=== PATIENT | female | born 1980 | race Caucasian/White ===

== ENCOUNTER 2016-10-18 13:23 | Emergency (ER) | payer MEDICAID ==
[~2016-10-18] VITALS: Ht 170.2 cm; Wt 86.2 kg
--- NOTE | 2016-10-18 13:23 | NUR ---
Patient was BIBA at this time.
[2016-10-18 13:28] VITALS: BP 165/111
--- NOTE | 2016-10-18 14:00 | NUR ---
PATIENT LEFT WITHOUT BEING SEEN BY DR. STEELE. NO FURTHER CARE PROVIDED FOR PATIENT.
== END 2016-10-18 14:00 | disposition left against medical advice (07) ==
LOC: MED 13:23
DX: R46.89 Other symptoms and signs involving appearance and behavior (principal); Z53.21 Procedure and treatment not carried out due to patient leaving prior to being seen by health care provider

== ENCOUNTER 2016-10-18 23:26 | Inpatient (IN) | payer MEDICAID ==
[~2016-10-18] VITALS: Ht 170.2 cm; Wt 87.1 kg
--- NOTE | 2016-10-18 23:35 | NUR ---
BLOOD DRAWN BY HYDRO EXCAVATION OPERATOR.
[2016-10-18 23:36] VITALS: BP 181/118
--- NOTE | 2016-10-18 23:48 | NUR ---
BIBA TO ER BED 3
--- NOTE | 2016-10-18 23:50 | NUR ---
BROUGHT IN BY AMBULANCE FOR ALOC. PT.HAS BEEN PLACED ON 5150 HOLD BY [facility] FOR DANGER TO SELF. PT. IS CONFUSED, REFUSED TO GIVE MUCH INFORMATION. AFEBRIL, NOT IN ANY KIND OF DISTRESS. NO PAIN OR DISCOMFORT NOTED. AWAITING ER-MD EVALUATION.
--- NOTE | 2016-10-19 00:04 | NUR ---
12 LEAD EKG DONE.
--- NOTE | 2016-10-19 00:24 | NUR ---
CAME AT BEDSIDE TO EVALUATE PATIENT.
[2016-10-19] MEDS: NACL 0.9% 1,000 ML IV SCH ×2 (02:03→14:33)
[2016-10-19] MEDS ORDERED: LORazepam 2 MG/ML VIAL IVP PRN (02:05)
[2016-10-19] MEDS ORDERED: HALOPERIDOL IM 5 MG/ML VIAL IM PRN (02:05)
[2016-10-19] MEDS ORDERED: HYDROcodone/APAP 5/325 MG 1 TAB TAB PO PRN (02:05)
[2016-10-19] MEDS ORDERED: ONDANSETRON 4 MG/2 ML VIAL IVP PRN (02:05)
[2016-10-19] MEDS ORDERED: diphenhydrAMINE 50 MG/ML VIAL IM PRN (02:05)
--- NOTE | 2016-10-19 02:05 | NUR ---
UNABLE TO FING A PSYCHIATRIC PLACEMENT FOR PATIENT. ADMITTED TO TELEMETRY IN-PATIENT STATUS FOR 5150 SUICIDAL UNDER THE SERVICE OF . ADMITTING ORDERS GIVEN BY . PT REMAINS STABLE.
--- NOTE | 2016-10-19 03:20 | NUR ---
ASLEEP, NOT IN ANY KIND OF DISTRESS. NO PAIN OR DISCOMFORT NOTED. STILL NO BED ASSIGNED. VS STABLE. WILL CONTINUE TO MONITOR.
--- NOTE | 2016-10-19 05:25 | NUR ---
PT. AWAKE, NOT IN ANY KIND OF DISTRESS. NO PAIN OR DISCOMFORT NOTED. GAUGE 22 IV LINE ESTABLISHED TO THE RIGHT HAND. STILL NO BED ASSIGNED. VS REMAIN STABLE.
--- NOTE | 2016-10-19 06:00 | NUR ---
0600 CALLED FOR PSYCH CONSULT PER PROTOCOL;PER HE WILL COME IN TODAY TO EVALUATE PT
--- NOTE | 2016-10-19 06:30 | NUR ---
PT. WILL BE GOING TO ICU BED 6 INSTEAD BUT NOT UNTIL AFTER 0730. WILL ENDORSE TO AM SHIFT RN.
--- NOTE | 2016-10-19 06:55 | NUR ---
TALK TO DR. LIM, HE WILL D/C NOTHING BY MOUTH ORDER AND CHANGE TO DIET FOR AGE
--- NOTE | 2016-10-19 07:10 | NUR ---
ENDORSED CARE TO LINDA ADAMS
--- NOTE | 2016-10-19 07:44 | NUR ---
PATIENT HAS BEEN SCREENED AND CATEGORIZED LOW NUTRITION RISK. PATIENT WILL BE SEEN WITHIN 7 DAYS OF ADMISSION. 10/25/[address]
--- NOTE | 2016-10-19 07:50 | NUR ---
RECEIVED PT FROM CAROLEE STANFORD.SHE ABLE TO WALK FROM [facility] TO ICU #6 SHE IS AWAKE ALERT FOLLOW COMMAND SHE IS AGITATED AND UNCOOPERATIVE OF AND ON. SHE DID NOT HAVE IV ACCESS AT THE TIME, SKIN INTACT, REFUSED TO HAVE INJECTION MOLDING MACHINE OFFBEARER PUT ON ,REFUSE ANSWER QUESTION . STAY IN BED AT THE TIME,.
--- NOTE | 2016-10-19 07:50 | NUR ---
CALLED ICU.TALKED TO THE RN.THEY SAID THEY WILL CALL BACK BECAUSE ONE OF THEIR PT IS GOING TO DIALYSIS AND THEY NEED TO GIVE THE INFORMATION REGARDING THE PT.
--- NOTE | 2016-10-19 07:59 | NUR ---
PT REMOVED HER IV CATH.EXPLAINED TO PT THAT SHE NEED AN IV ACCESS.BUT STATES" I DON'T NEED THAT ONE,lEAVE ME ALONE"WILL CONTINUE TO MONITOR PT.
--- NOTE | 2016-10-19 08:22 | NUR ---
Patient will be admitted to care of DR LIM. Admited toICU. Will go to rooM 6. Belongings list completed.
--- NOTE | 2016-10-19 08:43 | NUR ---
PT REMOVED IV AND REFUSED REPEATED ATTEMPTS TO INSERT NEW IV. Roque NOTIFIED AND ADVISED RN TO LEAVE IV OUT FOR REMAINDER OF STAY IN ER AND HAVE CLOCK AND WATCH ASSEMBLER ATTEMPT TO RE-ESTABLISH.
--- NOTE | 2016-10-19 09:00 | NUR ---
PT GET UP AND PUT ON HER CLOTH AND ATTEMPT TO WALK OUT FROM ICU . [facility] WAS CALLED. DR LIM WAS CALLED .ORDERED ATIVAN PO BECAUSE SHE REFUSED TO HAVE IV OR IM.
--- NOTE | 2016-10-19 09:03 | NUR ---
ATIVAN PO GAVE IT ORDERED.
--- NOTE | 2016-10-19 09:25 | NUR ---
PT STILL RESISTIVEB TO [facility] REFUSED TO HAVE VITAL SIGN TAKEN DR CAT NOTIFIED.
--- NOTE | 2016-10-19 09:36 | NUR ---
HALDOL IM GIVEN WITH PRESENT OF ORDER DEPARTMENT SUPERVISOR.
[2016-10-19] MEDS: LORazepam 1 MG TAB PO PRN ×2 (09:39→14:06)
[2016-10-19] MEDS ORDERED: HALOPERIDOL 5 MG TAB PO PRN (10:00)
--- NOTE | 2016-10-19 10:00 | NUR ---
PT SLEEPING IN BED.
--- NOTE | 2016-10-19 10:30 | NUR ---
SEEN BY DR. CAT AT BED SIDE. BUT SHE DID ANSWER HIS QUESTION. AND GETTING AGTATED
--- NOTE | 2016-10-19 12:55 | NUR ---
FAXED INITIAL REVIEW TO [facility] [phone] PHONE HUI [phone]
--- NOTE | 2016-10-19 14:20 | NUR ---
DR. LAMBERT CAME TO SEE THE PT SAME TIME WITH DR. BUTLER.
--- NOTE | 2016-10-19 14:30 | NUR ---
SEEN BY DR. BUTLER ORDER SINDY.
--- NOTE | 2016-10-19 15:34 | NUR ---
SS NOTE: SENT PSYCH PLACEMENT INQUIRY TO [facility], RECEIVED FAX CONFIRMATION
[2016-10-19 16:00] VITALS: BP 145/105
--- NOTE | 2016-10-19 17:49 | NUR ---
PT REFUSE HER DINNER
--- NOTE | 2016-10-19 19:15 | NUR ---
PT CONTINUE SLEEPING .REPORT GIVE T0 SAQIB SOLIMAN,
--- NOTE | 2016-10-19 19:15 | NUR ---
RECEIVED REPORT FROM JUAN RN AT BEDSIDE, PT IS SLEEPING IN BED, AGITATED WHEN TRYING TO WAKE HER UP, REFUSED TO BE ASSESSED, REFUSED V/S, REFUSED IV INSERTION. NO S/S OF SOB/DISTRESS, ON RA. NO IV ASSESS, SKIN IS INTACT, AMBULATORY PER REPORT. SAFETY MEASURES MAINTAINED, CALL LIGHT WITHIN REACH, WILL CONTINUE TO MONITOR.
--- NOTE | 2016-10-19 22:45 | NUR ---
PT IS AWAKE, SCHEDULED MEDICATION GIVEN, WENT BACK TO SLEEP, REFUSE DINNER, REFUSED TO BE ASSESSED.
[2016-10-19] MEDS: QUEtiapine FUMARATE 25 MG TAB PO SCH (22:46)
--- NOTE | 2016-10-20 | NUR ---
PT IS ASLEEP IN BED, REFUSED V/S AND BUYER RENTER.
[2016-10-20] MEDS: NACL 0.9% 1,000 ML IV SCH ×2 (03:03→14:35)
--- NOTE | 2016-10-20 04:00 | NUR ---
PT IS ASLEEP IN BED, NO CHANGE OF CONDITION.
--- NOTE | 2016-10-20 07:20 | NUR ---
REPORT GIVEN TO JANNY PUENTE FOR CONTINUE OF CARE.
--- NOTE | 2016-10-20 07:21 | NUR ---
RECEIVED REPORT FROM JANNY CERRATO. NO SIGNS OF ACUTE DISTRESS AT THIS TIME, NO C/O PAIN. PT IS ON ROOM AIR. PT HAS NO IV ACCESS, REFUSED INSERTION. SKIN IS INTACT. SAFETY PRECAUTIONS IN PLACE WITH BED IN LOWEST POSITION AND SIDE RAILS UP. CALL LIGHT WITHIN REACH. WILL CONTINUE TO MONITOR.
[2016-10-20 08:00] VITALS: BP 154/54
[2016-10-20] MEDS: QUEtiapine FUMARATE 25 MG TAB PO SCH (08:00)
--- NOTE | 2016-10-20 08:00 | NUR ---
PT TOLERATED MEDS WELL
--- NOTE | 2016-10-20 09:49 | NUR ---
DR. BE IN TO SEE PT. WILL FOLLOW UP ON ORDERS.
[2016-10-20] MEDS: LORazepam 1 MG TAB PO PRN (11:32)
--- NOTE | 2016-10-20 11:32 | NUR ---
PT BECOMING AGITATED. ADMINISTERED ATIVAN ORDERED PRN. WILL CONTINUE TO MONITOR.
--- NOTE | 2016-10-20 13:18 | NUR ---
CHECKED ON PT. RESTING AT THIS TIME, AROUSABLE. CALL LIGHT WITHIN REACH. WILL CONTINUE TO MONITOR.
--- NOTE | 2016-10-20 13:52 | NUR ---
SS NOTE: SENT PSYCH PLACEMENT INQUIRES TO [facility]
[2016-10-20] MEDS ORDERED: PROBIOTIC SCREEN 1 EA MISC MC PRN (14:35)
--- NOTE | 2016-10-20 14:38 | NUR ---
SS NOTE: PER JOSE LUIS FROM [facility], PT HAS BEEN ACCEPTED BUT NO BEDS AVAILABLE AT THIS TIME PER FLAKO FROM [facility], NO FEMALE BEDS AVAILABLE
--- NOTE | 2016-10-20 16:09 | NUR ---
PT STATED SHE "WANTS TO GO OUTSIDE FOR A WALK." INFORMED PT THAT SHE MUST STAY WITHIN THE UNIT FOR CLOSE OBSERVATION DUE TO 5150 HOLD AND FOR SAFETY PRECAUTIONS. PT BECAME AGITATED. PT WALKED TO THE DOOR AND RAN OUT OF UNIT, EVADED SECURITY. NOTIFIED [place] [employer] AND DR. RADFORD.
--- NOTE | 2016-10-20 16:25 | NUR ---
NOTIFIED BY [place] [employer] THAT PT WAS LOCATED. POLICE OFFER WILL BE HERE FOR CLARIFICATION
--- NOTE | 2016-10-20 17:00 | NUR ---
SPOKE WITH [place] [employer] AND GAVE COPY OF [address] LIM, PT HAS BEEN MEDICALLY CLEARED TO BE TAKEN INTO POLICE CUSTODY FOR PSYCHIATRIC HOLD.
== END 2016-10-20 17:00 | disposition left against medical advice (07) | DRG 52 ==
LOC: MED 23:26 → MMU 10-19 02:01 → MIC 10-19 06:55
PROVIDERS: ADMIT Family Medicine; ATTEND Family Medicine
DX: G93.41 Metabolic encephalopathy (principal); F33.3 Major depressive disorder, recurrent, severe with psychotic symptoms; R45.851 Suicidal ideations; I16.0 Hypertensive urgency; E66.9 Obesity, unspecified; Z60.2 Problems related to living alone; Z88.0 Allergy status to penicillin; Z91.14 Patient's other noncompliance with medication regimen; Z68.30 Body mass index [BMI] 30.0-30.9, adult; Z71.3 Dietary counseling and surveillance

== ENCOUNTER 2016-11-09 10:04 | Observation (INO) | payer MEDICAID ==
[~2016-11-09] VITALS: Ht 170.2 cm; Wt 86.2 kg
--- NOTE | 2016-11-09 10:04 | NUR ---
PT BIBA TO BED 3 AT THIS TIME.
--- NOTE | 2016-11-09 10:12 | NUR ---
36F BIBA C/O ALTERED MENTAL STATUS X TODAY; PER [facility], PT FOUND ON CENTRAL/ARROW WANDERING IN THE STREETS AND DISORIENTED; [facility] STATES PT WOULD "SAY RANDOM THINGS"; [place] [employer] ON SCENE; PT DENIES ANY IDEAS OF SUICIDAL IDEATION, HURTING SELF OR OTHERS AT THIS TIME; PT A&OX3 AT THIS TIME, PERRLA; PT ABLE TO FOLLOW COMMANDS, ANSWERS QUESTIONS APPROPRIATELY, BUT W/ DELAY WHEN ANSWERING QUESTIONS; PT DENIES ANY PAIN AT THIS TIME, BUT STATES HAS NAUSEA/VOMITING; ABDOMEN SOFT, NON-TENDER, ACTIVE BOWEL SOUNDS X 4 QUADRANTS; BL LUNG SOUNDS CLEAR, RR EVEN/UNLABORED, SKIN IS WARM/DRY AT THIS TIME; PT RESTING IN BED W/ HOB ELEVATED AND IN LOWEST POSITION; POSITIONED FOR COMFORT; ER MD MADE AWARE OF STATUS. WILL CONTINUE TO MONITOR.
[2016-11-09 10:20] VITALS: BP 148/103
--- NOTE | 2016-11-09 10:27 | NUR ---
ER MD DR. ENCINAS EVALUATING PT AT BEDSIDE.
[2016-11-09] MEDS ORDERED: NACL 0.9% 1,000 ML IV ONE ×2 (10:35→11:10)
[2016-11-09] MEDS ORDERED: ONDANSETRON 4 MG/2 ML VIAL IVP ONE (10:35)
[2016-11-09 11:12] LABS: BILIRUBIN,URINE NEGATIVE (NEGATIVE); BLOOD, URINE NEGATIVE (NEGATIVE); COLOR,URINE YELLOW (YELLOW); LEUKOCYTE ESTERASE ,URINE NEGATIVE (NEGATIVE); NITRITE, URINE NEGATIVE (NEGATIVE); PH,URINE 6.5 (5.0-9.0); PROTEIN,URINE NEGATIVE (NEGATIVE); UGLUCOSE NEGATIVE (NEGATIVE); UROBILINOGEN,URINE 0.2 EU/dL (0.2 - 1)
[2016-11-09] MEDS ORDERED: NACL 0.9% 1,000 ML IV SCH (11:15)
[2016-11-09] MEDS ORDERED: ONDANSETRON 4 MG/2 ML VIAL IVP PRN (11:15)
[2016-11-09] MEDS ORDERED: ACETAMINOPHEN 325 MG TAB PO PRN (11:15)
[2016-11-09] MEDS ORDERED: HYDROcodone/APAP 7.5/325 MG 1 TAB PO PRN (11:15)
[2016-11-09 11:17] LABS: HEMATOCRIT 44.2 % (36-48); HEMOGLOBIN 14.4 g/dL (12.0-16.0); MEAN CORPUSCULAR HEMOGLOBIN 29 pg (27-31); MEAN CORPUSCULAR HGB CONC 33 g/dL (33-37); MEAN CORPUSCULAR VOLUME 90 fL (80-94); PLATELET COUNT (AUTO) 299 K/uL (140-450); RED BLOOD CELL COUNT(AUTO) 4.93 MIL/uL (4.20-5.40); RED CELL DISTRIBUTION WIDTH 11.9 % (11.6-13.7); WHITE BLOOD COUNT (AUTO) 11.5 K/uL (4.8-10.8)
--- NOTE | 2016-11-09 11:28 | NUR ---
CALLED ERNESTO RN TO GIVE REPORT; ERNESTO TO CALL BACK IN 5 MINUTES.
[2016-11-09 11:35] LABS: ANION GAP 17.2 (8-16); CALCIUM 9.1 mg/dL (8.5-10.1); CARBON DIOXIDE 24.4 mmol/L (21-32); CHLORIDE 101 mmol/L (98-107); CREATININE 0.8 mg/dL (0.6-1.3); GFR ARICAN-AMERICAN 104 mL/min (>90); GFR NON ARICAN-AMERICAN 86 mL/min (>90); GLUCOSE 118 mg/dL (74-106); POTASSIUM 3.6 mmol/L (3.5-5.1); SODIUM SERUM 139 mmol/L (136-145); UREA NITROGEN, BLOOD 8 mg/dL (7-18)
--- NOTE | 2016-11-09 11:36 | NUR ---
REPORT GIVEN TO JANNY OROZCO AT THIS TIME.
[2016-11-09 11:40] LABS: ALANINE AMINOTRANSFERASE 82 U/L (12-78); ALBUMIN 4.2 g/dL (3.4-5.0); ALCOHOL, BLOOD < 3 mg/dL (<3); ALKALINE PHOSPHATASE 72 U/L (46-116); ASPARTATE AMINOTRANSFERASE 46 U/L (15-37); TOTAL BILIRUBIN 0.7 mg/dL (0.0-1.0); TOTAL PROTEIN, SERUM 8.2 g/dL (6.4-8.2)
[2016-11-09 11:42] LABS: ACETAMINOPHEN < 0.5 ug/ml (10-30); SALICYLATE < 2.8 mg/dL (2.8-20.0)
--- NOTE | 2016-11-09 11:45 | NUR ---
Patient will be admitted to care of DR. LIM. Admited to ICU (TELE). Will go to room ICU 2. Belongings list completed. Report to JANNY OROZCO.
[2016-11-09 11:46] LABS: BAND % (MANUAL) 2 % (0-8); LYMPHOCYTES % (MANUAL) 12 % (20-46); MONOCYTES % (MANUAL) 7 % (5-12); NEUTROPHILS % (MANUAL) 79 (43-65); PLATELET ESTIMATE ADEQUATE
[2016-11-09 11:47] LABS: PARTIAL THROMBOPLASTIN TIME 25.3 secs (22-35.6); PROTHROMBIN TIME 9.9 secs (10.8-13.4)
[2016-11-09 11:48] LABS: APPEARANCE,URINE HAZY (CLEAR); RBC,URINE 0-5 (RARE) /HPF (0-5); WBC,URINE 0-5 (RARE) /HPF (0-5)
[2016-11-09 11:49] LABS: AMPHETAMINE, URINE NEG. ng/ml (NEG <=1000); BACTERIA,URINE 1+ /HPF (None Seen); BARBITURATE, URINE NEG. ng/ml (NEG <=200); BENZODIAZEPINE, URINE NEG. ng/mL (NEG <=200); CANNABINOID, URINE NEG. ng/mL (NEG <=50); COCAINE, URINE NEG. ng/mL (NEG <=300); OPIATE, URINE NEG. ng/mL (NEG <=2000); PHENCYCLIDINE SCREEN,URINE NEG. ng/mL (NEG <=25); SQUAMOUS EPITHELIAL CELL,UR 4-10 (MOD) /LPF (0-3 (FEW))
[2016-11-09 12:00] VITALS: BP 158/102
--- NOTE | 2016-11-09 12:00 | NUR ---
RECEIVED PT. FROM ER IN [facility] ADM. TO ICU#2. PT AWAKE AND ALERT ,FOLLOW COMMAND SLOWLY.ABLE TO WALK FROM [facility] TO BED. SHE IS IN ROOM AIE O2 SAT IS 100%. SKIN DRY AND WARM TO TOUCH.NO OPEN AREA NOTE, SKIN COLOR IS NORMAL, ABDOMEN SOFT B/S ACTIVE, DR ATKINSON NOTIFY ABOUT PT ADMITTING.
[2016-11-09 12:23] LABS: MAGNESIUM 2.3 mg/dL (1.8-2.4)
[2016-11-09 12:24] LABS: CHOL/HDL RATIO 4.8 (1-4.5); FREE T4 (FREE THYROXINE) 1.24 ng/dL (0.76-1.46); PHOSPHORUS 2.2 mg/dL (2.5-4.9); THYROID STIMULATING HORMONE 1.76 uIU/mL (0.34-3.76)
[2016-11-09] MEDS ORDERED: LORazepam 2 MG/ML VIAL IVP PRN (13:00)
[2016-11-09] MEDS ORDERED: HALOPERIDOL 5 MG TAB PO PRN (13:00)
--- NOTE | 2016-11-09 14:19 | NUR ---
PT. PULLED RT WRIST IV OUT. PULLED ECG LEADS OFF. GOT OUT OF BED. GAIT IS STEADY. STATES SHE WANTS TO GO HOME. EXPLAINED TO PT IMPORTANCE OF STAYING IN THE HOSPITAL. INSISTS THAT SHE IS FEELING BETTER NOW. ASSISTED BACK TO BED.
--- NOTE | 2016-11-09 14:30 | NUR ---
GOT OUT OF BED. WANTS TO LEAVE HOSPITAL. STATES WE CAN NOT KEEP HER HERE AGAINST HER WILL. SECURITY AT BEDSIDE. TALKED TO PT. DR. ATKINSON NOTIFIED.
--- NOTE | 2016-11-09 14:40 | NUR ---
PT IS AWAKE ALERT ORIENTED ABLE TO REMEMBER HER ADDRESS AND PHONE NUMBER. SHE BECAME AGGRESSIVE REFUSE TO STAY IN BED .TRY TO WALK OUT .RODOLFO DYER PRESENT TALK TO PT. REGARDING CONSEQUENT OF LEAVING HOSPITAL AGAINST MEDICAL ADVISE. SHE REMAIN AWAKE ALERT POOR HISTORIAN ,GETTING OUT OF BED WALKING OUT TO GO HOME. AND SIGN LEAVING THE HOSPITAL AGAINST MEDICAL ADVISE. DR REYNOLDS NOTED
--- NOTE | 2016-11-09 14:45 | NUR ---
PT.LEAVE ICU WITH SECURITY CHANEL.
[2016-11-09] MEDS ORDERED: DOCUSATE SODIUM 100 MG GELCAP PO SCH (21:00)
[2016-11-10] MEDS ORDERED: PANTOPRAZOLE 40 MG INJ VIAL IVP SCH (09:00)
== END 2016-11-09 14:45 | disposition left against medical advice (07) ==
LOC: MED 10:04 → MIC 11:21
PROVIDERS: ADMIT Family Medicine; ATTEND Family Medicine
DX: R41.82 Altered mental status, unspecified (principal); R74.0 Nonspecific elevation of levels of transaminase and lactic acid dehydrogenase [LDH]; D72.829 Elevated white blood cell count, unspecified; E78.2 Mixed hyperlipidemia; E83.39 Other disorders of phosphorus metabolism
CPT/HCPCS: 36415; 70450; 71010; 80053; 80061; 80305; 81001; 82140; 82150; 82948; 83036; 83690; 83735; 83880; 84100; 84439; 84443; 84484; 85025; 85610; 85730; 87081; 87086; 93005; 96374; 96375; 96376; 99285; G0378; G0480; G0482; J2060; J2405; J7030; Q0092; J1630

== ENCOUNTER 2016-11-14 11:13 | Inpatient (IN) | payer MEDICAID ==
[~2016-11-14] VITALS: Ht 167.6 cm; Wt 84.8 kg
--- NOTE | 2016-11-14 11:26 | NUR ---
PT BIBA TO BED 3 AT THIS TIME.
[2016-11-14 11:28] VITALS: BP 172/120
--- NOTE | 2016-11-14 11:30 | NUR ---
PATIENT BIBA ON HOLD FOR SUICIDAL IDEATION. PT TOOK UNKNOWN AMOUNT AND UNKNOWN NAME OF PILLS; DENIES N/V/D; SKIN IS PINK/WARM/DRY; AAOX4 WITH EVEN AND STEADY GAIT; LUNGS CLEAR BL; HR EVEN AND REGULAR; PT DENIES ANY FEVER, CP, SOB, OR COUGH AT THIS TIME; PATIENT STATES PAIN OF 0/10 AT THIS TIME; VSS; PATIENT POSITIONED FOR COMFORT; HOB ELEVATED; BEDRAILS UP X2; BED DOWN. ER MD MADE AWARE OF PT STATUS.
[2016-11-14 11:38] LABS: BASOPHILS # (AUTO) 0.1 K/uL (0.00-0.22); EOSINOPHILS # (AUTO) 0.2 K/uL (0-0.4); EOSINOPHILS % (AUTO) 2.3 % (0.0-4.0); HEMATOCRIT 42.5 % (36-48); LYMPHOCYTES # (AUTO) 1.5 K/uL (2.5-16.5); LYMPHOCYTES % (AUTO) 19.1 % (20.5-51.1); MEAN CORPUSCULAR HEMOGLOBIN 29 pg (27-31); MEAN CORPUSCULAR HGB CONC 33 g/dL (33-37); MEAN CORPUSCULAR VOLUME 89 fL (80-94); MONOCYTES % (AUTO) 12.2 % (1.7-9.3); NEUTROPHILS # (AUTO) 5.3 K/uL (1.8-7.7); NEUTROPHILS % (AUTO) 65.4 % (42.2-75.2); PLATELET COUNT (AUTO) 223 K/uL (140-450); RED BLOOD CELL COUNT(AUTO) 4.78 MIL/uL (4.20-5.40); WHITE BLOOD COUNT (AUTO) 8.1 K/uL (4.8-10.8)
[2016-11-14 11:45] LABS: CALCIUM 8.9 mg/dL (8.5-10.1); CARBON DIOXIDE 24.8 mmol/L (21-32); CHLORIDE 105 mmol/L (98-107); CREATININE 0.9 mg/dL (0.6-1.3); GFR ARICAN-AMERICAN 91 mL/min (>90); GFR NON ARICAN-AMERICAN 75 mL/min (>90); GLUCOSE 122 mg/dL (74-106); POTASSIUM 3.8 mmol/L (3.5-5.1); SODIUM SERUM 139 mmol/L (136-145); UREA NITROGEN, BLOOD 11 mg/dL (7-18)
--- NOTE | 2016-11-14 11:47 | NUR ---
SPOKE WITH QUIQUE AT POISON CONTROL - MONITOR, CHECK LABS. [facility]
--- NOTE | 2016-11-14 11:50 | NUR ---
DR ABRAMS ASSESSING THE PT AT BEDSIDE
[2016-11-14 11:51] LABS: ALANINE AMINOTRANSFERASE 50 U/L (12-78); ALBUMIN 3.9 g/dL (3.4-5.0); ALKALINE PHOSPHATASE 69 U/L (46-116); ASPARTATE AMINOTRANSFERASE 21 U/L (15-37); TOTAL BILIRUBIN 0.5 mg/dL (0.0-1.0); TOTAL PROTEIN, SERUM 7.5 g/dL (6.4-8.2)
[2016-11-14 11:52] LABS: SALICYLATE < 2.8 mg/dL (2.8-20.0)
[2016-11-14 11:53] LABS: ACETAMINOPHEN < 0.5 ug/ml (10-30); ALCOHOL, BLOOD < 3 mg/dL (<3)
[2016-11-14 12:12] LABS: APPEARANCE,URINE CLEAR (CLEAR); BILIRUBIN,URINE NEGATIVE (NEGATIVE); BLOOD, URINE NEGATIVE (NEGATIVE); LEUKOCYTE ESTERASE ,URINE NEGATIVE (NEGATIVE); NITRITE, URINE NEGATIVE (NEGATIVE); PH,URINE 6.5 (5.0-9.0); PROTEIN,URINE NEGATIVE (NEGATIVE); UGLUCOSE NEGATIVE (NEGATIVE); UROBILINOGEN,URINE 0.2 EU/dL (0.2 - 1)
[2016-11-14 12:18] LABS: AMPHETAMINE, URINE NEG. ng/ml (NEG <=1000); BARBITURATE, URINE NEG. ng/ml (NEG <=200); BENZODIAZEPINE, URINE NEG. ng/mL (NEG <=200); CANNABINOID, URINE NEG. ng/mL (NEG <=50); COCAINE, URINE NEG. ng/mL (NEG <=300); OPIATE, URINE NEG. ng/mL (NEG <=2000); PHENCYCLIDINE SCREEN,URINE NEG. ng/mL (NEG <=25)
--- NOTE | 2016-11-14 12:25 | NUR ---
PT TOOK OFF THE UNIT, RUN OFF THE PARKING LOT TO THE STREET, SECURITY CALLED, MANE EASON NOTIFIED, AWARE
[2016-11-14 12:58] LABS: COLOR,URINE YELLOW (YELLOW)
--- NOTE | 2016-11-14 13:15 | NUR ---
PT FOUND BY MANE EASON AND BROUGHT BACK BY AMBULANCE REPORT RECIEVE FROM [facility], PLACE ON MONITOR, WITH HUMBERTO VILLAGOMEZ AT BEDSIDE
--- NOTE | 2016-11-14 13:30 | NUR ---
PT AMBULATES TO THE RESTROOM WITH HUMBERTO VILLAGOMEZ'S ASSISTANCE
--- NOTE | 2016-11-14 13:33 | NUR ---
PT BACK ON BED PLACED ON MONITOR BY HUMBERTO VILLAGOMEZ AT BEDSIDE, VSS, WILL CONTINUE TO MONITOR
--- NOTE | 2016-11-14 13:44 | NUR ---
PT UNCOOPERATIVE, TOOK OFF GOWN, TECH SNODRA AND TECH DAHLIA AT BEDSIDE
--- NOTE | 2016-11-14 15:00 | NUR ---
PT TOOK OFF RUNNING OFF THE UNIT TO THE PARKING LOT, JANNY ESPARZA, AND SECURITY ASSISTED THE PT BACK VIA WHEEL CHAIR TO BED 3
--- NOTE | 2016-11-14 16:11 | NUR ---
PT RESTING COMFORTABLY ON BED AT THIS TIME, SIDE RAILS UP X 2, NO AGITATION NOTED, ON MONITOR, HUMBERTO VILLAGOMEZ AT BEDSIDE, PER HUMBERTO HERNANDEZ PT ACCEPTED AT [facility], RN NOT AVAILABLE UNTIL 8PM, WILL CONTINUE TO MONITOR
--- NOTE | 2016-11-14 16:35 | NUR ---
PT WILL BE GOING TO 106B HOLDING AREA WITH SITTER PER JANNY KINCAID
--- NOTE | 2016-11-14 16:40 | NUR ---
PATIENT ACCEPTED AT [facility]. [place],RM 6-B LOCKED [place] UNIT. BED WILL BE READY AT 2029. NURSE WILL CALL REPORT AT 1999. PATIENT IN HOLDING AREA 106-B WITH SITTER UNTIL TRANSFER. WILL ARRANGE TRANSPORT
--- NOTE | 2016-11-14 19:30 | NUR ---
REPORT GIVEN TO JANNY LOU AT [facility], ADMITTING DR SIDHU, ROOM NO 6B LOCKED FLAT TOP UNIT AT [facility]
--- NOTE | 2016-11-14 20:29 | NUR ---
Patient to be transferred to [facility]. Is being transferred due to CONT OF CARE]. Receiving facility has accepting physician and available space. ER physician has signed transfer form. Patient or responsible republican has agreed to transfer and signed form. Patient belongings inventoried and will be sent with patient. Copy of nursing notes, lab reports, EKG, Physicians Orders and X-rays to be sent with patient. Report called to [facility] at receiving facility. [facility] ambulance service has been called for transfer. ETA is .
--- NOTE | 2016-11-14 20:50 | NUR ---
PT UNABLE TO BE TRANSFED TO [facility] S/P HIGH BP 185/93, 104,SAT 97%, CALLED REPORT TO PATEL. PT WILL BE ADMITED TO [facility] ICU 3
--- NOTE | 2016-11-14 21:14 | NUR ---
PT ASYMTOMTIC VSS, PRE DR CA PMD TO ORDER MEDS. ICU NOTIFTED
--- NOTE | 2016-11-14 21:22 | NUR ---
Patient will be admitted to care of [facility]. Admited to . Will go to room. Belongings list completed. Report to .
[2016-11-14 21:40] VITALS: BP 157/93
--- NOTE | 2016-11-14 21:40 | NUR ---
PATIENT ARRIVED FROM ER VIA [facility] WITH CHARGE NURSE KWAME SOLIMAN AND EMT ACCOMPANYING PATIENT. PATIENT IS ALERT, AWAKE, AND ABLE TO SELF AMBULATE FROM [facility] ONTO ICU BED 3. GAIT STEADY WITH NO SIGNS OF SOB OR RESPIRATORY DISTRESS NOTED. PATIENT'S DIAGNOSIS IS 5150. THERE IS NO IV ACCESS. WILL INSERT IV CANNULA. CHARGE NURSE DONN SOLIMAN AT BEDSIDE. ORIENTED PATIENT TO SURROUNDINGS. EXPLAINED TO PATIENT PLAN OF CARE IS CLOSE OBSERVATION AND MEDICATION ADMINISTRATION. PATIENT'S EFFECT IS FLAT, BUT VERBALIZED UNDERSTANDING. ASKED PATIENT IF SHE HAS ANY PLANS OF HARMING HERSELF OR OTHERS. PATIENT DENIES WANTING TO HURT HERSELF AND OTHERS. HOB AT 30 DEGREES WITH BED IN LOW POSITION. WILL CONTINUE TO MONITOR PATIENT.
--- NOTE | 2016-11-14 21:45 | NUR ---
[facility] SWAB COLLECTED.
--- NOTE | 2016-11-14 22:00 | NUR ---
CHARGE NURSE DONN RN #20 INSERTED INTO LEFT HAND. IV IS INTACT AND PATENT. CONTINUE TO MONITOR.
--- NOTE | 2016-11-14 22:18 | NUR ---
PATIENT REQUESTED BEDPAN TO VOID. ASSISTED PATIENT ONTO BEDPAN. CONTINUE TO MONITOR PATIENT.
--- NOTE | 2016-11-14 22:20 | NUR ---
PATIENT IS RESTLESS AND AGITATED WANTS TO GO DOWN FROM THE BED SINCE PATIENT CAME IN OR ADMITTED FROM ER AND HER BP TOO IS HIGH 150-160 SYSTOLIC; PAGED DR. FRAIRE TO REFER THE PATIENT; RETURNED MY PAGED 10 MINS AFTER WITH NEW ORDERS, CARRIED OUT.
--- NOTE | 2016-11-14 22:29 | NUR ---
PATIENT SITTING UP IN BED. PATIENT REMOVED EKG LEADS, PULSE OX, AND BLOOD PRESSURE CUFF. ASSISTED PATIENT ONTO BEDSIDE COMMODE.
[2016-11-14] MEDS ORDERED: ACETAMINOPHEN 325 MG TAB PO PRN (22:30)
[2016-11-14] MEDS ORDERED: DOCUSATE SODIUM 100 MG GELCAP PO PRN (22:30)
[2016-11-14] MEDS ORDERED: MORPHINE SULFATE 2 MG/ML SYR IVP PRN (22:30)
[2016-11-14] MEDS ORDERED: ONDANSETRON 4 MG/2 ML VIAL IVP PRN (22:30)
--- NOTE | 2016-11-14 22:30 | NUR ---
URINE OUTPUT OF 300ML OF CLEAR PALE YELLOW URINE.
--- NOTE | 2016-11-14 22:32 | NUR ---
PATIENT REPORTING HER RIGHT ARM HURTS. PATIENT REMOVED IV CANNULA.
[2016-11-14] MEDS ORDERED: NACL 0.9% 1,000 ML IV SCH (22:35)
[2016-11-14] MEDS ORDERED: LISINOPRIL 10 MG TAB PO SCH (22:35)
[2016-11-14] MEDS ORDERED: hydrALAZINE 20 MG/ML VIAL IVP ONE (22:35)
--- NOTE | 2016-11-14 22:45 | NUR ---
PATIENT REFUSING IV INSERTION AT THIS TIME.
[2016-11-14] MEDS: LORazepam 2 MG/ML VIAL IM/IVP PRN (23:13)
--- NOTE | 2016-11-14 23:15 | NUR ---
CHARGE NURSE DONN SOLIMAN INSERTED #22 INTO RIGHT HAND. SITE IS DRY, INTACT, AND PATENT. CONTINUE TO MONITOR. Addendum: 11/15/16 at 0339 by Anthony Yuen RN LEFT HAND, NOT RIGHT HAND.
--- NOTE | 2016-11-14 23:18 | NUR ---
BRIQUETTE MOLDER AT BEDSIDE FOR LAB DRAWS. PATIENT ATTEMPTING TO REMOVE IV CATHETER. DIRECTOR TRANSLATION TIMOTHY SOLIMAN ON UNIT. SOFT WRIST RESTRAINTS APPLIED ON BILATERAL WRISTS R/T PATIENT ATTEMPTING TO REMOVE IV CATHETER. DIRECTOR TRANSLATION IS AWARE. CONTINUE TO MONITOR.
[2016-11-14 23:28] LABS: MAGNESIUM 2.1 mg/dL (1.8-2.4); PHOSPHORUS 1.4 mg/dL (2.5-4.9); THYROID STIMULATING HORMONE 1.28 uIU/mL (0.34-3.76)
--- NOTE | 2016-11-14 23:50 | NUR ---
PAGED DR. LIM. WILL WAIT FOR CALL BACK.
[2016-11-14 23:52] LABS: INR 1.1 (0.8-1.2); PARTIAL THROMBOPLASTIN TIME 24.7 secs (22-35.6); PROTHROMBIN TIME 10.1 secs (10.8-13.4)
--- NOTE | 2016-11-14 23:52 | NUR ---
SPOKE TO DR. FRAIRE, WHO IS EGG TRAYER FOR DR. LIM. NOTIFIED DR. FRAIRE THAT PATIENT PULLED OUT IV, REPEATEDLY ATTEMPTING TO PULL OUT NEW IV INSERTION, AND THAT CHARGE NURSE DONN SOLIMAN PREVIOUSLY REPORTED THIS TO HIM. DR. FRAIRE WILL PUT IN ORDERS FOR BILATERAL SOFT WRIST RESTRAINTS.
[2016-11-15] VITALS: BP 112/71
--- NOTE | 2016-11-15 01:45 | NUR ---
PAGED DR. FRAIRE REGARDING CRITICAL LAB LACTIC ACID 2.7. WILL WAIT FOR CALL BACK.
--- NOTE | 2016-11-15 01:47 | NUR ---
SPOKE TO DR. FRAIRE REGARDING CRITICAL LAB VALUE OF LACTIC ACID 2.7. DR. FRAIRE STATED HE WILL PUT IN NEW ORDERS FOR REPEAT LACTIC ACID. CHARGE NURSE DONN SOLIMAN MADE AWARE. CONTINUE TO MONITOR PATIENT.
--- NOTE | 2016-11-15 01:52 | NUR ---
PATIENT IS RESTING COMFORTABLY IN BED. BREATHING IS EVEN AND UNLABORED. CONTINUE TO MONITOR.
--- NOTE | 2016-11-15 02:07 | NUR ---
SSIS ETL DEVELOPER KARMEN AT BEDSIDE FOR SCHEDULED LAB DRAW.
--- NOTE | 2016-11-15 03:54 | NUR ---
PATIENT REQUESTED TO USE BSC TO VOID. BILATERAL SOFT WRIST RESTRAINTS REMOVED. OUTPUT OF 225ML OF CLEAR YELLOW URINE NOTED. ASSISTED PATIENT BACK INTO BED. INSTRUCTED PATIENT THAT BILATERAL SOFT WRIST RESTRAINTS ARE OFF FOR TIME BEING AND REINFORCED TO PATIENT NOT TO REMOVE IV CATHETER. PATIENT STATED "OK". WILL CONTINUE TO MONITOR.
--- NOTE | 2016-11-15 03:59 | NUR ---
PATIENT ATTEMPTING TO PULL OUT IV LINE. BILATERAL SOFT WRIST RESTRAINTS REAPPLIED. WILL CONTINUE TO MONITOR PATIENT.
[2016-11-15 04:00] VITALS: BP 130/87
--- NOTE | 2016-11-15 04:44 | NUR ---
NAVAL DESIGNER KARMEN AT BEDSIDE FOR SCHEDULED LAB DRAW.
[2016-11-15 04:58] LABS: BASOPHILS # (AUTO) 0.1 K/uL (0.00-0.22); BASOPHILS % (AUTO) 1.4 % (0.0-2.0); EOSINOPHILS # (AUTO) 0.1 K/uL (0-0.4); EOSINOPHILS % (AUTO) 1.5 % (0.0-4.0); HEMATOCRIT 40.3 % (36-48); HEMOGLOBIN 13.1 g/dL (12.0-16.0); LYMPHOCYTES # (AUTO) 1.8 K/uL (2.5-16.5); MEAN CORPUSCULAR HEMOGLOBIN 30 pg (27-31); MEAN CORPUSCULAR HGB CONC 33 g/dL (33-37); MEAN CORPUSCULAR VOLUME 90 fL (80-94); MONOCYTES # (AUTO) 0.7 K/uL (0.8-1.0); MONOCYTES % (AUTO) 9.8 % (1.7-9.3); NEUTROPHILS # (AUTO) 4.9 K/uL (1.8-7.7); NEUTROPHILS % (AUTO) 64.3 % (42.2-75.2); PLATELET COUNT (AUTO) 198 K/uL (140-450); RED BLOOD CELL COUNT(AUTO) 4.46 MIL/uL (4.20-5.40); WHITE BLOOD COUNT (AUTO) 7.6 K/uL (4.8-10.8)
--- NOTE | 2016-11-15 05:13 | NUR ---
ASSISTED PATIENT ONTO BEDSIDE COMMODE TO VOID. OUTPUT OF 180ML OF CLEAR YELLOW URINE NOTED. ASSISTED PATIENT BACK INTO BED. BILATERAL SOFT WRIST RESTRAINTS REAPPLIED. CONTINUE TO MONITOR.
[2016-11-15 05:30] LABS: ANION GAP 10.8 (8-16); CALCIUM 8.7 mg/dL (8.5-10.1); CARBON DIOXIDE 27.8 mmol/L (21-32); CREATININE 0.9 mg/dL (0.6-1.3); POTASSIUM 3.6 mmol/L (3.5-5.1)
--- NOTE | 2016-11-15 06:00 | NUR ---
PATIENT REQUESTED TO USE BSC TO VOID. CHARGE NURSE DONN RN AT BEDSIDE TO ASSIST PATIENT ONTO BSC. CONTINUE TO MONITOR.
--- NOTE | 2016-11-15 06:03 | NUR ---
BILATERAL SOFT WRIST RESTRAINTS REMOVED AT THIS TIME. REINFORCED TO PATIENT NOT TO REMOVE IV LINE. PATIENT VERBALIZED UNDERSTANDING. CONTINUE TO MONITOR.
--- NOTE | 2016-11-15 06:12 | NUR ---
PATIENT RESTING IN BED. AFFECT IS FLAT. NO SIGNS OF DISTRESS OR DISCOMFORT NOTED AT THIS TIME. CONTINUE TO MONITOR.
--- NOTE | 2016-11-15 07:09 | NUR ---
PATIENT IN STABLE CONDITION. ENDORSED CONTINUITY OF CARE TO DAVID SOLIMAN.
--- NOTE | 2016-11-15 07:30 | NUR ---
RECEIVED PT FROM SECTION LEADER AND MACHINE SETTER RN ZENY. PATIENT IS ALERT, AWAKE, AND ABLE TO AMBULATE. PT ON ROOM AIR, NO SIGNS OF RESPIRATORY DISTRESS NOTED. PATIENT'S DIAGNOSIS IS 5150. IV TO LEFT HAND # 22 RUNNING FLUID AT 20 ML/HR, SITE INTACT AND PATENT. ORIENTED PATIENT TO SURROUNDINGS. EXPLAINED TO PATIENT PLAN OF CARE IS CLOSE OBSERVATION , PT VERBALIZED UNDERSTANDING. PT DENIES ANY PLANS OF HARMING HERSELF BUT SHE STATED SHE WANTS TO GO HOME . HOB AT 30 DEGREES WITH BED IN LOW POSITION. WILL CONTINUE TO MONITOR PATIENT.
[2016-11-15] MEDS: LORazepam 2 MG/ML VIAL IM/IVP PRN ×2 (07:48→11:46)
[2016-11-15 08:00] VITALS: BP 150/96
[2016-11-15] MEDS ORDERED: hydrALAZINE 20 MG/ML VIAL IVP SCH (08:21)
[2016-11-15] MEDS ORDERED: LISINOPRIL 10 MG TAB PO SCH (09:00)
[2016-11-15 09:11] VITALS: BP 120/68
--- NOTE | 2016-11-15 09:30 | NUR ---
PT REFUSED TO RECHECK BP. EXPLAINED TO PT WE NEED TO REASSESS BP. PT STATED " IT BOTHERING ME", THEN PT TOOK THE BP CUFF OFF.
--- NOTE | 2016-11-15 09:43 | NUR ---
PATIENT HAS BEEN SCREENED AND CATEGORIZED LOW NUTRITION RISK. PATIENT WILL BE SEEN WITHIN 7 DAYS OF ADMISSION. 11/21/[address]
--- NOTE | 2016-11-15 10:41 | NUR ---
CM NOTE PER COMBINE MECHANIC TAHMINA, REVIEWS SHOULD BE SENT TO BOTH [facility] AND [facility]. INITIAL REVIEW SENT TO [facility] FAX# [phone] PH#[phone] AND TO [facility] FAX# [phone] PH# [phone] (c) [phone]
[2016-11-15 12:00] VITALS: BP 120/70
[2016-11-15] MEDS ORDERED: SODIUM PHOS / POTASSIUM PHOS 1 PKT PDR PO SCH (12:00)
--- NOTE | 2016-11-15 12:00 | NUR ---
MANUAL BP CHECKED 120/70. PT REFUSED BEDSIDE BP CHECK.
--- NOTE | 2016-11-15 15:14 | NUR ---
BP SLEEPING AT THIS TIME. NO S/S OF RESPIRATORY DISTRESS NOTED. WILL CONTINUE TO MONITOR. Addendum: 11/15/16 at 1646 by Pascual Ruiz RN TYPO. PATIENT INSTEAD OF BP.
--- NOTE | 2016-11-15 15:58 | NUR ---
DR. LOVE PSYCHO IN TO ASSESS PT.
[2016-11-15 16:10] VITALS: BP 140/80
--- NOTE | 2016-11-15 16:10 | NUR ---
PT PULLED OUT IV AFTER EVALUATED BY , GOT OUT OF BED AND WALKED OUT OF UNIT, CALLED SECURITY TO ASSIST PT BACK TO BED. MANUAL BP CHECKED 140/80 , PT REFUSED BEDSIDE BP CHECK.
--- NOTE | 2016-11-15 16:15 | NUR ---
PER DR. LOVE, PT MAY BE D/C 'D HOME IF PT IS MEDICALLY CLEARED. NOTIFIED DR. ROMERO, PER DR. ROMERO HE WILL COME OVER TO ASSESS PT.
--- NOTE | 2016-11-15 17:00 | NUR ---
PT REFUSED BEDSIDE MONITOR. RISKS AND BENEFITS EXPLAINED TO PT. PT STILL REFUSED MONITORING.
--- NOTE | 2016-11-15 17:30 | NUR ---
AT BEDSIDE TO ASSESS PT.
--- NOTE | 2016-11-15 17:50 | NUR ---
PT TOLD SHE WANTS TO GO HOME. DR. ROMERO EXPLAINED TO PT THE RISKS OF LEAVING, PT STILL WANTS TO GO HOME. PT SIGNED AMA FORM. PT CALLED DR. RALPH HUANG ( FATHER) TO PICK HER UP. PT STATED HE DOES NOT WANT TO PICK ME UP, I WILL WALK HOME BY MYSELF. PT WALKED OUT OF UNIT AFTER SIGNING AMA FORM.
== END 2016-11-15 17:50 | disposition left against medical advice (07) | DRG 770 ==
LOC: MED 11:13 → UNDOADMOB 21:22 → MIC 21:22 → INTOOBSV 21:22 → OBSVTOIN 11-15 07:17 → MIC 11-15 07:17
PROVIDERS: ADMIT Family Medicine; ATTEND Family Medicine
DX: F13.129 Sedative, hypnotic or anxiolytic abuse with intoxication, unspecified (principal); R45.851 Suicidal ideations; F43.23 Adjustment disorder with mixed anxiety and depressed mood; E83.39 Other disorders of phosphorus metabolism; E66.9 Obesity, unspecified; E78.2 Mixed hyperlipidemia; Z53.21 Procedure and treatment not carried out due to patient leaving prior to being seen by health care provider; T42.75XA Adverse effect of unspecified antiepileptic and sedative-hypnotic drugs, initial encounter; Z68.30 Body mass index [BMI] 30.0-30.9, adult; Z88.0 Allergy status to penicillin; I16.0 Hypertensive urgency
CPT/HCPCS: 36415; 80048; 80053; 80305; 81003; 82040; 82150; 83036; 83605; 83690; 83735; 83880; 84100; 84443; 84702; 85025; 85610; 85730; 87081; 93005; 99285; G0378; G0480; G0482; J0360; J2060; J7030

== ENCOUNTER 2017-01-04 10:33 | Inpatient (IN) | payer MEDICAID ==
[~2017-01-04] VITALS: Ht 172.7 cm; Wt 78.0 kg
--- NOTE | 2017-01-04 10:35 | NUR ---
PT BIBA TO BED 3.
[2017-01-04 10:37] VITALS: BP 176/108
--- NOTE | 2017-01-04 10:40 | NUR ---
PT BIBA ON 5150 HOLD, ALTERED MENTAL STATUS. HX SCHIZOPHRENIA. DENIES N/V/D; SKIN IS PINK/WARM/DRY; AAOX4 WITH EVEN AND STEADY GAIT; LUNGS CLEAR BL; HR EVEN AND REGULAR; PT DENIES ANY FEVER, CP, SOB, OR COUGH AT THIS TIME; PATIENT STATES PAIN OF 0/10 AT THIS TIME; VSS; PATIENT POSITIONED FOR COMFORT; HOB ELEVATED; BEDRAILS UP X2; BED DOWN. ER MD MADE AWARE OF PT STATUS.
--- NOTE | 2017-01-04 10:50 | NUR ---
PT AMBULATES TO THE RESTROOM FOR URINE SAMPLE AND PLACE BACK ON BED ON CONTINOUS MONITOR, PT COOPERATIVE, NO AGRESSIVE BEHAVIOR NOTED AT THIS TIME, WILL CONTINUE TO MONITOR
[2017-01-04 11:03] LABS: BASOPHILS # (AUTO) 0.1 K/uL (0.00-0.22); BASOPHILS % (AUTO) 1.5 % (0.0-2.0); EOSINOPHILS # (AUTO) 0.2 K/uL (0-0.4); EOSINOPHILS % (AUTO) 1.6 % (0.0-4.0); HEMOGLOBIN 12.8 g/dL (12.0-16.0); LYMPHOCYTES # (AUTO) 1.5 K/uL (2.5-16.5); LYMPHOCYTES % (AUTO) 14.9 % (20.5-51.1); MEAN CORPUSCULAR HEMOGLOBIN 29 pg (27-31); MEAN CORPUSCULAR HGB CONC 33 g/dL (33-37); MEAN CORPUSCULAR VOLUME 89 fL (80-94); MONOCYTES # (AUTO) 0.8 K/uL (0.8-1.0); MONOCYTES % (AUTO) 8.7 % (1.7-9.3); NEUTROPHILS # (AUTO) 7.2 K/uL (1.8-7.7); NEUTROPHILS % (AUTO) 73.3 % (42.2-75.2); PLATELET COUNT (AUTO) 200 K/uL (140-450); RED BLOOD CELL COUNT(AUTO) 4.37 MIL/uL (4.20-5.40); RED CELL DISTRIBUTION WIDTH 11.9 % (11.6-13.7); WHITE BLOOD COUNT (AUTO) 9.8 K/uL (4.8-10.8)
[2017-01-04 11:05] LABS: BILIRUBIN,URINE NEGATIVE (NEGATIVE); BLOOD, URINE NEGATIVE (NEGATIVE); COLOR,URINE YELLOW (YELLOW); LEUKOCYTE ESTERASE ,URINE NEGATIVE (NEGATIVE); NITRITE, URINE NEGATIVE (NEGATIVE); PROTEIN,URINE NEGATIVE (NEGATIVE); UGLUCOSE NEGATIVE (NEGATIVE); UROBILINOGEN,URINE 0.2 EU/dL (0.2 - 1)
[2017-01-04 11:12] LABS: ANION GAP 13.1 (8-16); CALCIUM 8.5 mg/dL (8.5-10.1); CARBON DIOXIDE 27.6 mmol/L (21-32); CHLORIDE 102 mmol/L (98-107); CREATININE 0.8 mg/dL (0.6-1.3); GFR ARICAN-AMERICAN 104 mL/min (>90); GFR NON ARICAN-AMERICAN 86 mL/min (>90); GLUCOSE 103 mg/dL (74-106); POTASSIUM 3.7 mmol/L (3.5-5.1); SODIUM SERUM 139 mmol/L (136-145); UREA NITROGEN, BLOOD 13 mg/dL (7-18)
[2017-01-04 11:12] LABS: AMPHETAMINE, URINE NEG. ng/ml (NEG <=1000); BARBITURATE, URINE NEG. ng/ml (NEG <=200); BENZODIAZEPINE, URINE NEG. ng/mL (NEG <=200); CANNABINOID, URINE NEG. ng/mL (NEG <=50); COCAINE, URINE NEG. ng/mL (NEG <=300); OPIATE, URINE NEG. ng/mL (NEG <=2000); PHENCYCLIDINE SCREEN,URINE NEG. ng/mL (NEG <=25)
[2017-01-04 11:15] LABS: APPEARANCE,URINE HAZY (CLEAR)
[2017-01-04 11:16] LABS: BACTERIA,URINE None Seen /HPF (None Seen); RBC,URINE NONE SEEN /HPF (0-5); SQUAMOUS EPITHELIAL CELL,UR 0-3 (FEW) /LPF (0-3 (FEW)); WBC,URINE 0-5 (RARE) /HPF (0-5)
[2017-01-04 11:19] LABS: ALANINE AMINOTRANSFERASE 64 U/L (14-59); ALBUMIN 3.9 g/dL (3.4-5.0); ALCOHOL, BLOOD < 3 mg/dL (<3); ALKALINE PHOSPHATASE 60 U/L (46-116); ASPARTATE AMINOTRANSFERASE 23 U/L (15-37); CREATINE KINASE, TOTAL 136 U/L (26-192); SALICYLATE < 2.8 mg/dL (2.8-20.0); TOTAL BILIRUBIN 0.5 mg/dL (0.0-1.0); TOTAL PROTEIN, SERUM 7.4 g/dL (6.4-8.2)
[2017-01-04 11:20] LABS: ACETAMINOPHEN < 0.5 ug/ml (10-30)
--- NOTE | 2017-01-04 12:16 | NUR ---
COOPERATIVE PATIENT CONSUMES 100% OF LUNCH PROVIDED
--- NOTE | 2017-01-04 12:42 | NUR ---
PT AMBULATES TO THE RESTROOM AND BACK TO BED WITH HUMBERTO AMARO'S ASSISTANCE
[2017-01-04] MEDS ORDERED: LORazepam 2 MG/ML VIAL IM ONE (13:25)
[2017-01-04] MEDS: NACL 0.9% 1,000 ML IV SCH ×2 (13:33→14:30)
[2017-01-04] MEDS ORDERED: MORPHINE SULFATE 2 MG/ML SYR IVP PRN (13:35)
[2017-01-04] MEDS ORDERED: HYDROcodone/APAP 7.5/325 MG 1 TAB PO PRN (13:35)
[2017-01-04] MEDS ORDERED: ACETAMINOPHEN 325 MG TAB PO PRN (13:35)
[2017-01-04] MEDS ORDERED: DOCUSATE SODIUM 100 MG GELCAP PO PRN (13:35)
[2017-01-04] MEDS ORDERED: ONDANSETRON 4 MG/2 ML VIAL IM/IVP PRN (13:35)
[2017-01-04 13:54] LABS: PARTIAL THROMBOPLASTIN TIME 26.5 secs (22-35.6); PROTHROMBIN TIME 9.8 secs (10.8-13.4)
[2017-01-04 14:05] LABS: MAGNESIUM 2.1 mg/dL (1.8-2.4); THYROID STIMULATING HORMONE 1.18 uIU/mL (0.34-3.74)
--- NOTE | 2017-01-04 14:19 | NUR ---
Patient will be admitted to care of DR GRIFFITHS. Admited to ICU. Will go to room ICU 5. Belongings list completed. Report to JANNY LYLES.
--- NOTE | 2017-01-04 14:25 | NUR ---
RECEIVED REPORT FROM JANNY BROWN. PT IS A/O X4. VERBALLY RESPONSIVE. ABLE TO MAKE NEEDS KNOWN. PT ABLE TO FOLLOW COMMANDS/ANSWER QUESTIONS OCCASIONALLY. SOMETIMES REQUIRES PROMPTING TO REFOCUS. STATED SLEEPINESS. DENIES ANY PAIN OR DISCOMFORT. REFUSED SCDS. MADE AWARE. REFUSED SOCKS, PULLS THEM OFF WHEN PLACED. DIFFICULTY PLACING PT ON LOT ATTENDANT. PT AT FIRST REFUSED, BUT CONSENTED AFTER EXPLANATION OF NECESSITY OF MONITORING. VITALS ARE STABLE. BP 128/74, P 98, RR 9. PT ON RA, SATURATING AT 96%. SR ON MONITOR. ABLE TO MOVE ALL EXTREMITIES. ABLE TO AMBULATE INDEPENDENTLY WITH STAND BY ASSIST. SKIN IS INTACT. RIGHT AC 20 GAUGE NOTED. INTACT AND PATENT. ABLE TO VOID INDEPENDENTLY. URINE NOTED TO BE CLEAR AND YELLOW. SAFETY PRECAUTION MAINTAINED. BED AT LOWEST SETTING. CALL LIGHT WITHIN REACH. WILL CONTINUE TO MONITOR FOR CHANGES.
--- NOTE | 2017-01-04 14:50 | NUR ---
DR. BARRETT AT BEDSIDE TO SEE PT. WILL F/U WITH NEW ORDERS.
--- NOTE | 2017-01-04 15:27 | NUR ---
SS NOTE: PER HUI FROM [facility] (C: [phone]), NO FEMALE BEDS AVAILABLE PER JEFFERY FROM [facility], THEY DO NOT ACCEPT ADULT MEDI-CECELIA PER KIT FROM [facility], THEY DO NOT ACCEPT ADULT MEDI-CECELIA PER RICKY FROM [facility], THEY DO NOT ACCEPT ADULT MEDI-CECELIA PER MEETA FROM [facility], THEY DO NOT HAVE A CONTRACT WITH ADULT MEDI-CECELIA PER INDY FROM [facility], THEY ONLY TAKE MEDI-CECELIA PTS UP TO AGE 20 MESSAGE LEFT FOR [facility] REGARDING FEMALE BED AVAILABILITY ([phone])
--- NOTE | 2017-01-04 15:30 | NUR ---
PT RESTING COMFORTABLY. DENIES ANY PAIN.
[2017-01-04 16:00] VITALS: BP 123/69
--- NOTE | 2017-01-04 16:30 | NUR ---
PT RESTING COMFORTABLY. DENIES ANY PAIN.
--- NOTE | 2017-01-04 17:00 | NUR ---
PT RESTING COMFORTABLY. DENIES ANY PAIN. REFUSED DINNER. LEFT AT BEDSIDE REQUESTED
--- NOTE | 2017-01-04 18:15 | NUR ---
PT AWAKEN TO NAME AND SHAKING. STATED SHE'S STILL SLEEPY. WILL CONTINUE TO MONITOR.
--- NOTE | 2017-01-04 19:13 | NUR ---
REPORT GIVEN TO JANNY KIRKLAND. PT IS STABLE. ALL NEEDS MET.
--- NOTE | 2017-01-04 19:14 | NUR ---
RECEIVED REPORT FROM DAY NURSE RAFAL RN FOR CONTINUATION OF CARE. PT IS RESTING IN BED CALMLY AT THIS TIME. PT IS AROUSABLE TO NAME CALLING AND LIGHT SHAKING. PT IS ON ROOM AIR WITH NO S/S OF ACUTE RESP DISTRESS AT THIS TIME. SPO2 IS 97% AT THIS TIME VIA PULSE OXIMETRY. AGRICULTURAL CONSULTANT SHOWS SR AT THIS TIME. PT HAS RIGHT AC #20 IV SITE RUNNING NS AT 60ML/HR. IV SITE IS PATENT DRY AND INTACT. ABDOMEN IS SOFT. NO N/V NOTED AT THIS TIME PT ABLE TO MOVE SELF EXTREMITIES INDEPENDENTLY IN BED. BED IN LOW POSITION.HOB UP 30 DEGREES. SAFETY PRECAUTIONS MAINTAINED. WILL CONTINUE TO CLOSELY MONITOR.
[2017-01-04 20:00] VITALS: BP 125/82
[2017-01-04] MEDS ORDERED: QUEtiapine FUMARATE 25 MG TAB PO SCH (21:00)
--- NOTE | 2017-01-04 21:28 | NUR ---
PT SITTING UP IN BED EATING FOOD CALMLY. NO SOB NOTED AT THIS TIME. PT DENIES ANY PAIN. WILL CONTINUE TO MONITOR.
--- NOTE | 2017-01-04 22:18 | NUR ---
DR RADFORD ON THE UNIT TO SEE PATIENT. NO NEW ORDERS AT THIS TIME. WILL CONTINUE TO MONITOR.
--- NOTE | 2017-01-05 00:04 | NUR ---
PT REFUSED TO HAVE BP TAKEN AT THIS TIME. PT EXPLAINED THE IMPORTANCE OF HAVING BP MONITORED. PT STILL REFUSED. WILL CONTINUE TO MONITOR.
--- NOTE | 2017-01-05 00:08 | NUR ---
PT ASKED TO HAVE IV FLUID STOPPED AT THIS TIME. PT EXPLAINED THE IMPORTANCE OF HAVING IVF. PT STILL REFUSED. WILL CONTINUE TO MONITOR.
--- NOTE | 2017-01-05 00:17 | NUR ---
PT REMOVED IV SITE. INFORMED DR RADFORD ABOUT PT REMOVING IV SITE AND HOLDING NS AT THIS TIME. NO NEW ORDERS AT THIS TIME. WILL CONTINUE WITH MONITORING PATIENT CLOSELY FOR THE NIGHT.
--- NOTE | 2017-01-05 02:35 | NUR ---
PT RESTING IN BED COMFORTABLY. NO SOB NOTED AT THIS TIME. NO S/S OF DISCOMFORT AT THIS TIME. WILL CONTINUE TO MONITOR.
--- NOTE | 2017-01-05 04:46 | NUR ---
PT AMBULATED TO BEDSIDE COMMODE. PT ALSO REMOVED HEART MONITOR LEADS. PT WAS INFORMED THE IMPORTANCE OF BEING MONITORED. PT STILL REFUSED. WILL CONTINUE TO CLOSELY MONITOR.
--- NOTE | 2017-01-05 05:20 | NUR ---
PT BECOMING AGITATED, PT THREW CUP OF WATER ONTO FLOOR. THREW PILLOW ON THE FLOOR. PT YELLED AT STAFF STATING,"I WANT FOOD". MYCOLOGIST PROVIDED PT WITH SANDWICH AND PT IS NOW EATING SANDWHICH IN BED. SECURITY CALLED AND IS AT BEDSIDE. CALLED AND UPDATED DR RADFORD ABOUT PT CURRENT STATUS. ORDERS RECEIVED. PT IS CURRENTLY RESTING IN BED CALMLY AT THIS TIME. WILL CONTINUE TO CLOSELY MONITOR.
--- NOTE | 2017-01-05 05:28 | NUR ---
RESIDENT DR BARNES, DR BAEZ HERE ON THE UNIT TO SEE PATIENT. PT IS CURRENTLY CALMLY RESTING IN BED. WILL CONTINUE TO CLOSELY MONITOR.
--- NOTE | 2017-01-05 06:05 | NUR ---
PT REFUSED MORNING CARE. PT IS CURRENTLY SITTING UP IN BED EATING A SANDWICH CALMLY. NO SOB NOTED AT THIS TIME. WILL CONTINUE TO MONITOR.
--- NOTE | 2017-01-05 07:08 | NUR ---
ENDORSED PLAN OF CARE TO DAY NURSE JANNY MCMULLEN FOR TRANSFER OF CARE. PT IS CALMLY RESTING IN BED. NO S/S OF ACUTE RESP DISTRESS NOTED AT THIS TIME.
--- NOTE | 2017-01-05 07:45 | NUR ---
AWAKE. USED THE BSC. VOIDED WITHOUT ANY DIFF. CLEAR YELLOW URINE. REFUSED TO BE PLACED BACK ON LINE MANAGER. PULLED IV OUT EARLIER. REFUSED TO HAVE IV REINSERTED. DR. KAN AT BEDSIDE. PT REFUSED TO ANSWER QUESTIONS.
[2017-01-05 08:00] VITALS: BP 144/74
--- NOTE | 2017-01-05 08:00 | NUR ---
DR. KAN NOTIFIED THAT PT. PULLED HER IV OUT DURING ASSISTANT PRODUCT MANAGER AND REFUSED TO HAVE IT REINSERTED.
[2017-01-05 08:17] LABS: HEMOGLOBIN A1C 5.5 % (4.8-5.6); T4 (THYROXINE) 8.4 ug/dL (4.5-12.0)
--- NOTE | 2017-01-05 09:11 | NUR ---
PATIENT HAS BEEN SCREENED AND CATEGORIZED LOW NUTRITION RISK. PATIENT WILL BE SEEN WITHIN 7 DAYS OF ADMISSION. 01/11/[address]
--- NOTE | 2017-01-05 09:24 | NUR ---
CM NOTE INITIAL REVIEW FAXED TO [facility] [phone] PH [phone] AND TO [facility] [phone] DAVID [phone]
--- NOTE | 2017-01-05 09:50 | NUR ---
PT WOKE UP. GRABBED HOLD OF THE BOWL OF OATMEAL AND THREW IT AT THE WALL. ASKED THE PT WHY SHE DID IT. DID NOT ANSWER. PT. WAS TOLD THAT THIS BEHAVIOR IS NOT ACCEPTABLE.
--- NOTE | 2017-01-05 10:00 | NUR ---
REBECCA FROM SECURITY MAKING ROUNDS IN THE ICU. PT THREW A BOX OF JUICE AT HER.
[2017-01-05] MEDS: HALOPERIDOL IM 5 MG/ML VIAL IM PRN ×2 (10:05→17:00)
--- NOTE | 2017-01-05 10:05 | NUR ---
HALDOL 2 MG IM GIVEN ON THE LEFT DELTOID. EXPLAINED TO PT. PURPOSE AND SIDE EFFECTS HALDOL.
--- NOTE | 2017-01-05 10:30 | NUR ---
AWAKE, CALM AT THIS TIME.
[2017-01-05] MEDS ORDERED: QUEtiapine FUMARATE 25 MG TAB PO SCH ×2 (11:12→21:00)
--- NOTE | 2017-01-05 11:51 | NUR ---
TRIED TO GIVE PT SEROQUEL ORDERED. REFUSED.
--- NOTE | 2017-01-05 13:00 | NUR ---
GETS OUT OF BED BY HERSELF TO US BEDSIDE COMMODE. CYRUS. ACTIVITY WELL. GAIT STEADY. STILL WON'T RESPOND VERBALLY WHEN SPOKE TO, JUST STARES AT YOU.
--- NOTE | 2017-01-05 13:56 | NUR ---
Social Service Note: I faxed inquiry to [facility] , fax # . Per Nasrin from [facility], they do not have any beds available at this time and are not anticipating having any today.
--- NOTE | 2017-01-05 14:15 | NUR ---
STOOD UP AT BEDSIDE. URINATED ON THE FLOOR.
--- NOTE | 2017-01-05 14:55 | NUR ---
Social Service Note: Per generator operator from [facility] , their facility is [facility] Per generator operator from [facility] , they only accept [facility] residents (patients) on 51/50 holds, without insurance (self pay). Per Sylvia from [facility] , they do not have any beds available at this time, she strongly emphasized for us to call them and inquire if they have any beds available before faxing inquiry. She requested verbal basic information about patient, name, age, insurance, and reason for 51/50 hold, I provided her with information. She stated she would contact us if a bed becomes available. I provided her with my contact information and ICU's phone number, made JANNY Gutiérrez aware.
--- NOTE | 2017-01-05 15:50 | NUR ---
DR. FIGUEROA HERE TO EVALUATE PT. BUT PT REFUSES TO RESPOND. PER DR. FIGUEROA SHE WILL ASK DR. FONTANEZ TO SEE PT TOMORROW.
[2017-01-05 16:00] VITALS: BP 124/74
--- NOTE | 2017-01-05 17:00 | NUR ---
STARTING TO GET AGITATED BEFORE TRANSFER TO TELEMETY. HALDOL 2 MG IM GIVEN.
--- NOTE | 2017-01-05 17:15 | NUR ---
PATIENT TRANSFERRED FROM ICU. PATIENT GIVEN HALDOL PRIOR TO TRANSFER. PATIENT ASLEEP BUT AROUSABLE. NO S/S OF DISTRESS NOTED. PATIENT WITH 1:1 SITTER. BED LOWERED WITH CALL LIGHT WITHIN REACH.
--- NOTE | 2017-01-05 17:15 | NUR ---
TRANSFERRED TO RM. 123-B PER BED ACCPD. BY SECURITY. REPORT GIVEN TO
--- NOTE | 2017-01-05 19:20 | NUR ---
PATIENT REPORT GIVEN AT BEDSIDE. PATIENT ENDORSED IN STABLE CONDITION
--- NOTE | 2017-01-05 19:21 | NUR ---
RECEIVED REPORT FROM AM NURSE. PT ASLEEP, BUT EASILY AROUSABLE. NO S/S OF DISTRESS NOTED. WITH A 1:1 SITTER. WILL CONTINUE TO MONITOR FOR ANY CHANGES. CALL LIGHT WITHIN REACH.
--- NOTE | 2017-01-05 22:00 | NUR ---
PATIENT IS SEEN SLEEPING, BUT EASILY AROUSABLE. WHEN ATTEMPTING TO TALK TO PATIENT, PATIENT IS WITHDRAWN AND REFUSES TO ANSWER. WITH 1:1 SITTER. WILL CONTINUE TO MONITOR.
[2017-01-05] MEDS: NACL 0.9% 1,000 ML IV SCH (22:53)
--- NOTE | 2017-01-06 01:30 | NUR ---
PT WAS SEEN EATING FOOD AND WALKED TO THE RESTROOM.
--- NOTE | 2017-01-06 04:30 | NUR ---
PT IS ASLEEP. NO S/S OF DISTRESS. WITH A 1:1 SITTER. WILL CONTINUE TO MONITOR FOR ANY CHANGES.
--- NOTE | 2017-01-06 06:50 | NUR ---
GOT UP TO THE BATHROOM SEVERAL TIMES DURING THE NIGHT,STILL WITH 1:1 SITER . WILL CONTINUE TO MONITOR.
--- NOTE | 2017-01-06 07:24 | NUR ---
ENDORSED TO AM SHIFT FOR CONTINUITY OF CARE. PT IN STABLE CONDITION.
--- NOTE | 2017-01-06 07:25 | NUR ---
RECEIVED REPORT AT BEDSIDE FROM NIGHT RN. PATIENT SLEEPING IN BED, EASILY AWAKENS. SITTER AT BEDSIDE. OPENS EYES SPONTANEOUSLY DOES NOT FOLLOW SIMPLE COMMANDS.
--- NOTE | 2017-01-06 07:33 | NUR ---
PATIENT ABLE TO VERBALIZE NEED TO USE RESTROOM. PATIENT AMBULATORY. STEADY GAIT.
--- NOTE | 2017-01-06 07:44 | NUR ---
PATIENT WALKED OUT OF ROOM WITH SITTER AT FRONT ENTRANCE. SITTER SPOKE WITH PATIENT TO STOP, PATIENT CONTINUED TO WALK OUT LEAVING THE FACILITY, SECURITY PAGED AT THIS TIME, SITTER FOLLOWED PATIENT AND OBSERVED THE PATIENT LEAVING THE HOSPITAL.
--- NOTE | 2017-01-06 07:50 | NUR ---
MANE EASON NOTIFIED OF PATIENT ELOPE FROM FACILITY. MADE AWARE OF 5150 HOLD AND PATIENT CONDITION AND DESCRIPTION OF PATIENT.
--- NOTE | 2017-01-06 13:26 | NUR ---
FAXED CONCURRENT REVIEW TO [facility] [phone] PHONE DAVID [phone] FAXED CONCURRENT REVIEW TO [facility] [phone] PHONE [phone]
== END 2017-01-06 07:44 | disposition left against medical advice (07) | DRG 750 ==
LOC: MED 10:33 → MIC 13:33 → MTU 01-05 17:00
PROVIDERS: ADMIT Family Medicine; ATTEND Family Medicine
DX: F20.9 Schizophrenia, unspecified (principal); G93.41 Metabolic encephalopathy; Z91.19 Patient's noncompliance with other medical treatment and regimen; E11.9 Type 2 diabetes mellitus without complications; R45.851 Suicidal ideations; I10 Essential (primary) hypertension; E78.5 Hyperlipidemia, unspecified; Z60.2 Problems related to living alone; Z72.89 Other problems related to lifestyle; Z88.0 Allergy status to penicillin
CPT/HCPCS: 36415; 80053; 80305; 81001; 81025; 82150; 82550; 82948; 83036; 83690; 83735; 83880; 84100; 84436; 84443; 85025; 85610; 85730; 87081; 93005; 96372; 99285; G0480; G0482; J1630; J2060; J7030

== ENCOUNTER 2017-01-06 08:50 | Emergency (ER) | payer MEDICAID ==
[~2017-01-06] VITALS: Ht 167.6 cm; Wt 77.1 kg
[2017-01-06 08:52] VITALS: BP 161/108
--- NOTE | 2017-01-06 08:55 | NUR ---
PATIENT TO ER BED 3.
--- NOTE | 2017-01-06 09:00 | NUR ---
PT WAS PUT TO SOFT RESTRAINT;PT IS CONFUSED;POSES DANGER TO SELF;CHECKED CIRCULATION AND SKIN CONDITON;SAFETY MEASURES DONE;
--- NOTE | 2017-01-06 09:00 | NUR ---
DR. CA AT BEDSIDE.
--- NOTE | 2017-01-06 09:00 | NUR ---
PATIENT BIB [place] [employer] FOR ELOPEMENT. PT ADMITTED FOR ALTERED MENTAL STATUS ON 5150. PT POOR HISTORIAN R/T HX AND DISPOSITION. PER [facility], OFFICER CHANDRIKA PT WALKING AROUND ON [facility]. HX SCHIZOPHRENIA, HTN.PT IS NOT ANSWERING ANY QUESTION. SKIN IS PINK/WARM/DRY;PT CONFUSED WITH EVEN AND STEADY GAIT; LUNGS CLEAR BL; HR EVEN AND REGULAR; NO FEVER, CP, SOB, OR COUGH NOTED AT THIS TIME; PATIENT POSITIONED FOR COMFORT; HOB ELEVATED; BEDRAILS UP X2; BED DOWN. ALL MONITORS IN PLACED.
--- NOTE | 2017-01-06 09:05 | NUR ---
SI PRECAUTIONS IN PLACE. PT PLACED OF 4 POINT SOFT RESTRAINTS PER DR. CA. MARYCHUY MONTES CNA AT BEDSIDE.
[2017-01-06 09:12] LABS: BASOPHILS # (AUTO) 0.1 K/uL (0.00-0.22); BASOPHILS % (AUTO) 1.1 % (0.0-2.0); EOSINOPHILS # (AUTO) 0.2 K/uL (0-0.4); EOSINOPHILS % (AUTO) 2.4 % (0.0-4.0); HEMATOCRIT 41.2 % (36-48); HEMOGLOBIN 13.8 g/dL (12.0-16.0); LYMPHOCYTES # (AUTO) 1.1 K/uL (2.5-16.5); LYMPHOCYTES % (AUTO) 12.9 % (20.5-51.1); MEAN CORPUSCULAR HEMOGLOBIN 30 pg (27-31); MEAN CORPUSCULAR HGB CONC 33 g/dL (33-37); MEAN CORPUSCULAR VOLUME 89 fL (80-94); MONOCYTES # (AUTO) 0.5 K/uL (0.8-1.0); MONOCYTES % (AUTO) 6.4 % (1.7-9.3); NEUTROPHILS # (AUTO) 6.5 K/uL (1.8-7.7); NEUTROPHILS % (AUTO) 77.2 % (42.2-75.2); PLATELET COUNT (AUTO) 202 K/uL (140-450); RED BLOOD CELL COUNT(AUTO) 4.63 MIL/uL (4.20-5.40); RED CELL DISTRIBUTION WIDTH 12.3 % (11.6-13.7); WHITE BLOOD COUNT (AUTO) 8.4 K/uL (4.8-10.8)
--- NOTE | 2017-01-06 09:13 | NUR ---
Social Service Note: Per Demetra from [facility] , they do not have any beds available at this time, she advised us to contact them around 12pm today.
--- NOTE | 2017-01-06 09:14 | NUR ---
MANE EASON, OFFICER CHANDRIKA AT BEDSIDE SPEAKING WITH PT. SI PRECAUTIONS IN PLACE.
--- NOTE | 2017-01-06 09:15 | NUR ---
Social Service Note: Per Jon from [facility] , they do not have any beds available at this time. She advised me to contact them after 12pm today.
[2017-01-06 09:24] LABS: ANION GAP 12.6 (8-16); CALCIUM 8.8 mg/dL (8.5-10.1); CARBON DIOXIDE 27.4 mmol/L (21-32); CHLORIDE 105 mmol/L (98-107); CREATININE 0.9 mg/dL (0.6-1.3); GFR ARICAN-AMERICAN 91 mL/min (>90); GFR NON ARICAN-AMERICAN 75 mL/min (>90); GLUCOSE 103 mg/dL (74-106); SODIUM SERUM 141 mmol/L (136-145); UREA NITROGEN, BLOOD 11 mg/dL (7-18)
[2017-01-06 09:30] LABS: ALANINE AMINOTRANSFERASE 77 U/L (14-59); ALBUMIN 3.6 g/dL (3.4-5.0); ALCOHOL, BLOOD < 3 mg/dL (<3); ALKALINE PHOSPHATASE 55 U/L (46-116); ASPARTATE AMINOTRANSFERASE 39 U/L (15-37); TOTAL BILIRUBIN 0.4 mg/dL (0.0-1.0); TOTAL PROTEIN, SERUM 7.1 g/dL (6.4-8.2)
[2017-01-06 09:31] LABS: ACETAMINOPHEN < 0.5 ug/ml (10-30); SALICYLATE < 2.8 mg/dL (2.8-20.0)
[2017-01-06] MEDS ORDERED: hydrALAZINE 20 MG/ML VIAL IM ONE ×2 (09:55→12:55)
--- NOTE | 2017-01-06 10:09 | NUR ---
PT RESTING ON BED;ALL MONITORS IN PLACED;CHECKED ULE AND LLE FOR CIRCULATION;NO COMPROMISE CIRCULATION AND SKIN TEAR NOTED;SAFETY MEASURES DONE;WILL CONTIUE TO MONITOR PT.
--- NOTE | 2017-01-06 10:16 | NUR ---
Social Service Note: Per Megan from [facility] , patient has been at their facility previously and they are not able to meet patient's needs, unable to accept.
--- NOTE | 2017-01-06 10:30 | NUR ---
RELEASED RESTRAINT FOR PT TO EAT BUT PT STARTS TO PULL HER LAWRENCE CATHETER;RESTRAINT WAS REAPPLIED;WILL CONTINUE TO MONITOR PT.
--- NOTE | 2017-01-06 10:40 | NUR ---
PT ATE 10% OF HER BEAKFAST;
--- NOTE | 2017-01-06 11:06 | NUR ---
BP WAS CHECKED AT 1106 BP OF 176/100;NE 113; O2 SAT OF 98%;RR 18;
[2017-01-06 11:16] LABS: AMPHETAMINE, URINE NEG. ng/ml (NEG <=1000); BARBITURATE, URINE NEG. ng/ml (NEG <=200); BENZODIAZEPINE, URINE NEG. ng/mL (NEG <=200); CANNABINOID, URINE NEG. ng/mL (NEG <=50); COCAINE, URINE NEG. ng/mL (NEG <=300); OPIATE, URINE NEG. ng/mL (NEG <=2000); PHENCYCLIDINE SCREEN,URINE NEG. ng/mL (NEG <=25)
--- NOTE | 2017-01-06 11:34 | NUR ---
PT LYING ON BED QUIETLY;NO ACUTE DISTRESS NOTED;WILL STEFAN NUE TO KEMAL ANAYA PT.
--- NOTE | 2017-01-06 12:41 | NUR ---
PT SITTING ON BED;OFFERED SOME BEAD AND CRACKERS;PT REFUSED TO EAT BREAD BUT DRINKS SOME ORANGE JUICE.
--- NOTE | 2017-01-06 13:09 | NUR ---
Social Service Note: I called [facility] , no answer, left message.
--- NOTE | 2017-01-06 13:34 | NUR ---
PT KEEPS ON SPITTING ,REMOVING HER BALNKET AND PULLING HER GOWN;
--- NOTE | 2017-01-06 14:07 | NUR ---
Social Service Note: I received a phone call from Sylvia from [facility] , per Sylvia they do not have beds available at this time, nor are they anticipating having any later today.
--- NOTE | 2017-01-06 14:43 | NUR ---
PT REFUSES TO EAT LUNCH;PT SPITTING FOOD;
--- NOTE | 2017-01-06 14:46 | NUR ---
HYDRALAZINE WAS REASSESSED BP OF 117/90;AZ 126;02 SAT 0F 97%;T 98.3;RR 16
--- NOTE | 2017-01-06 15:37 | NUR ---
PT TAKING OFF BLANKET EXPOSING HER PRIVATE AREA PUT BACK ON BALNKET PT IS SANDOVALIUS;STATES "DON'T PU IT BACK"WILLC ONTINUE TO MONITOR PT.
--- NOTE | 2017-01-06 16:37 | NUR ---
PT RESTING ON BED;PT REMOVED HER BLANKET COVERED PT ;
--- NOTE | 2017-01-06 17:27 | NUR ---
PT LYING ON BED;NO ACUTE DISTRESS NOTED;WILL CONTINUE TO M ONITOR PT.
[2017-01-06] MEDS ORDERED: HALOPERIDOL IM 5 MG/ML VIAL IM ONE (17:30)
--- NOTE | 2017-01-06 18:34 | NUR ---
PSCHIATRIST CAME TO EVALUATE PT;TALKING TO PT.
--- NOTE | 2017-01-06 19:05 | NUR ---
PT RESTING IN BED, ON MONITOR, SOFT RESTRAINS X4. NO S/S OF DISTRESS OR IMPAIRED CIRCULATION NOTED. WILL CONT TO MONITOR.
--- NOTE | 2017-01-06 19:40 | NUR ---
PT RESTING IN BED QUITELY, ON MONITORER MADE AWARE OF VS. RESTRAINS CHECKED, NO S/S OF IMPAIRED CIRCULATION NOTED AT THE MOMENT.
--- NOTE | 2017-01-06 20:25 | NUR ---
PT TRYING TO REMOVE RESTRAINS. ER NOTIFIED.
--- NOTE | 2017-01-06 21:22 | NUR ---
PT CONTINUES TO TAKE SOFT RESTRAINS OFF AND GETTING OUT FROM BED. ER MD NOTIFIED.
--- NOTE | 2017-01-06 22:29 | NUR ---
PT VERBALLY VIOLENT TOWARDS STAFF.ER MD MADE AWARE OF VS. NO S/S OF DSITRESS NOTED AT THE MOMENT. NO S/S OF IMPAIRED CIRCULATION TO 4 EXTREMITIES. WILL CONT TO MONITOR.
--- NOTE | 2017-01-06 22:53 | NUR ---
LAWRENCE CATH REMOVED BY CAROLEE COTA VERBAL ORDERS.
[2017-01-06] MEDS ORDERED: diphenhydrAMINE 50 MG/ML VIAL IM ONE (23:05)
[2017-01-06] MEDS ORDERED: LORazepam 2 MG/ML VIAL IM ONE (23:05)
[2017-01-06] MEDS ORDERED: NACL 0.9% 1,000 ML IV ONE (23:15)
[2017-01-06] MEDS ORDERED: LORazepam 2 MG/ML VIAL IVP ONE (23:15)
[2017-01-06] MEDS ORDERED: diphenhydrAMINE 50 MG/ML VIAL IVP ONE (23:15)
--- NOTE | 2017-01-06 23:24 | NUR ---
[facility] transport team at bedside.
--- NOTE | 2017-01-06 23:34 | NUR ---
Patient to be transferred to [facility]. Is being transferred due to SPECIALIZED LEVEL OF CARE. Receiving facility has accepting physician and available space. ER physician has signed transfer form. Patient or responsible constitution party has agreed to transfer and signed form. Patient belongings inventoried and will be sent with patient. Copy of nursing notes, lab reports, EKG, Physicians Orders and X-rays to be sent with patient. Report called to DEBRA, CHARGE NURSE at receiving facility. [facility] ambulance service has been HERE FOR STEREO EQUIPMENT INSTALLER.
--- NOTE | 2017-01-06 23:50 | NUR ---
PT URINATED IN BED, ABOUT 200 ML. VSS. O2 SAT 100 RA. MJ CHARGE NURSE FROM ADMITING FACILITY NOTIFIED.
--- NOTE | 2017-01-06 23:50 | NUR ---
IV REVOMED FROM [facility]. CATHERER INTACT. PT TOLERATED WELL.
--- NOTE | 2017-01-06 23:50 | NUR ---
Uche ann in ED - 01/07/17 at 0343 by DARREN IV REVOMED FROM [facility]. CAROL GIBSONCT. PT TOLERATED WELL.
[2017-01-06 23:59] VITALS: BP 136/86
--- NOTE | 2017-01-06 23:59 | NUR ---
PT TAKEN BY [facility] UNIT 235. VSS, NO S/S OF DISTRESS NOTED UPON DC.
== END 2017-01-06 23:59 ==
LOC: MED 08:50
DX: R45.1 Restlessness and agitation (principal); F20.9 Schizophrenia, unspecified; I10 Essential (primary) hypertension; Z88.0 Allergy status to penicillin
CPT/HCPCS: 36415; 51702; 80053; 80305; 81025; 82948; 85025; 93005; 96372; 96374; 96375; 99285; G0480; G0482; J0360; J1200; J1630; J2060; J7030

== ENCOUNTER 2017-05-31 19:53 | Inpatient (IN) | payer MEDICAID ==
[~2017-05-31] VITALS: Ht 170.2 cm; Wt 86.2 kg
--- NOTE | 2017-05-31 19:53 | NUR ---
Patient was BIBA and taken to bed 06.
[2017-05-31 20:00] VITALS: BP 146/84
--- NOTE | 2017-05-31 20:01 | NUR ---
36/F king from her apartment on a 5150. CCRT was called out by Johnnie EASON to her residence. Pt was found confused, asking for food and stating she was hungry. There was no food found in her home. CCRT placed her on a 5150 for gravely disabled. Pt arrived on [facility], calm and relaxed. Was placed into bed 6. Upon being transferred into the [facility] bed patient became agitated, raising her voice, refusing to change into gown. Security called to bedside.
[2017-05-31] MEDS ORDERED: diphenhydrAMINE 50 MG CAP PO ONE (20:05)
[2017-05-31] MEDS ORDERED: HALOPERIDOL IM 5 MG/ML VIAL IM ONE (20:05)
--- NOTE | 2017-05-31 20:07 | NUR ---
Pt ambulated to restroom. UA collected.
--- NOTE | 2017-05-31 20:20 | NUR ---
Security at bedside. All belongings removed and placed in belongings bag. Security Gilbert too pt belongings and placed in office.
--- NOTE | 2017-05-31 20:36 | NUR ---
Pt provided with a sandwich. Pt ate half a sandwich and 2 apple juices. Comfort needs met.
--- NOTE | 2017-05-31 20:48 | NUR ---
Pt resting quietly at this time. Sleeping, VSS. 1:1 sitter with patient.
--- NOTE | 2017-05-31 21:06 | NUR ---
Labs drawn and sent to lab.
[2017-05-31 21:19] LABS: BASOPHILS # (AUTO) 0.1 K/uL (0.00-0.22); BASOPHILS % (AUTO) 1.7 % (0.0-2.0); EOSINOPHILS # (AUTO) 0.1 K/uL (0-0.4); EOSINOPHILS % (AUTO) 1.2 % (0.0-4.0); HEMATOCRIT 40.1 % (36-48); HEMOGLOBIN 13.3 g/dL (12.0-16.0); LYMPHOCYTES # (AUTO) 1.6 K/uL (2.5-16.5); LYMPHOCYTES % (AUTO) 19.5 % (20.5-51.1); MEAN CORPUSCULAR HEMOGLOBIN 30 pg (27-31); MEAN CORPUSCULAR HGB CONC 33 g/dL (33-37); MEAN CORPUSCULAR VOLUME 89 fL (80-94); MONOCYTES # (AUTO) 0.7 K/uL (0.8-1.0); NEUTROPHILS # (AUTO) 5.8 K/uL (1.8-7.7); NEUTROPHILS % (AUTO) 69.6 % (42.2-75.2); PLATELET COUNT (AUTO) 215 K/uL (140-450); RED BLOOD CELL COUNT(AUTO) 4.52 MIL/uL (4.20-5.40); RED CELL DISTRIBUTION WIDTH 11.8 % (11.6-13.7); WHITE BLOOD COUNT (AUTO) 8.3 K/uL (4.8-10.8)
[2017-05-31 21:30] LABS: BARBITURATE, URINE NEG. ng/ml (NEG <=200); BENZODIAZEPINE, URINE NEG. ng/mL (NEG <=200); CANNABINOID, URINE NEG. ng/mL (NEG <=50); COCAINE, URINE NEG. ng/mL (NEG <=300); OPIATE, URINE NEG. ng/mL (NEG <=2000); PHENCYCLIDINE SCREEN,URINE NEG. ng/mL (NEG <=25)
[2017-05-31 21:31] LABS: CARBON DIOXIDE 27.5 mmol/L (21-32); CHLORIDE 101 mmol/L (98-107); CREATININE 0.9 mg/dL (0.6-1.3); GFR ARICAN-AMERICAN 91 mL/min (>90); GLUCOSE 146 mg/dL (74-106); POTASSIUM 3.5 mmol/L (3.5-5.1); SODIUM SERUM 138 mmol/L (136-145); UREA NITROGEN, BLOOD 10 mg/dL (7-18)
[2017-05-31 21:33] LABS: PROTHROMBIN TIME 10.2 secs (10.8-13.4)
[2017-05-31 21:36] LABS: ACETAMINOPHEN < 0.5 ug/ml (10-30); ALBUMIN 3.7 g/dL (3.4-5.0); ASPARTATE AMINOTRANSFERASE 28 U/L (15-37); SALICYLATE < 2.8 mg/dL (2.8-20.0); TOTAL BILIRUBIN 0.5 mg/dL (0.0-1.0)
[2017-05-31] MEDS: NACL 0.9% 1,000 ML IV SCH (22:13)
[2017-05-31] MEDS ORDERED: ACETAMINOPHEN 325 MG TAB PO PRN (22:15)
[2017-05-31] MEDS ORDERED: HYDROcodone/APAP 7.5/325 MG 1 TAB PO PRN (22:15)
[2017-05-31] MEDS ORDERED: ONDANSETRON 4 MG/2 ML VIAL IVP PRN (22:15)
[2017-05-31] MEDS ORDERED: HALOPERIDOL IM 5 MG/ML VIAL IM PRN (22:30)
--- NOTE | 2017-05-31 22:55 | NUR ---
Upon inserting IV pt grabbing at arm trying to remove IV. Pt instructed to not remove IV. Dr. Roca made aware. Order for soft restraints received.
--- NOTE | 2017-05-31 23:00 | NUR ---
Pt transferred to Tele 109-A via [place] on cardiac monitoring.
--- NOTE | 2017-05-31 23:05 | NUR ---
PT ARRIVED AT UNIT VIA GURNEY, RECEIVED BEDSIDE REPORT FROM ER NURSE, PT STABLE, NO DISTRESS NOTED, IV TO R AC 20 G SL, R ARM ABRASION, SKIN INTACT, INITIAL ASSESSMENT DONE, SAFETY PRECAUTION MET. SITTER BY BEDSIDE. WILL CONTINUE TO MONITOR.
--- NOTE | 2017-05-31 23:06 | NUR ---
PT NOT ON ANY RESTRAINS. PT STABLE, COOPERATIVE, WILL CONTINUE TO MONITOR.
[2017-05-31 23:30] VITALS: BP 157/99
--- NOTE | 2017-05-31 23:50 | NUR ---
PT REFUSED IVF, INFORMED DR BAPTISTE, PT STABLE NO DISTRESS NOTED, SITTER BY BEDSIDE, WILL CONTINUE TO MONITOR.
[2017-05-31 23:58] LABS: CHOL/HDL RATIO 3.9 (1-4.5); FREE T4 (FREE THYROXINE) 1.02 ng/dL (0.76-1.46); MAGNESIUM 2.1 mg/dL (1.8-2.4); THYROID STIMULATING HORMONE 2.6 uIU/mL (0.34-3.74)
--- NOTE | 2017-06-01 03:10 | NUR ---
PT SLEEPING, NO DISTRESS NOTED, SITTER BY BEDSIDE, WILL CONTINUE TO MONITOR.
[2017-06-01 04:00] VITALS: BP 137/86
--- NOTE | 2017-06-01 05:50 | NUR ---
PT REFUSES CT HEAD, PT STABLE, NO DISTRESS NOTED, SITTER BY BEDSIDE. WILL CONTINUE TO MONITOR.
[2017-06-01 06:50] LABS: BASOPHILS # (AUTO) 0.1 K/uL (0.00-0.22); BASOPHILS % (AUTO) 1.1 % (0.0-2.0); EOSINOPHILS # (AUTO) 0.1 K/uL (0-0.4); EOSINOPHILS % (AUTO) 1.3 % (0.0-4.0); HEMATOCRIT 39.2 % (36-48); HEMOGLOBIN 13.1 g/dL (12.0-16.0); LYMPHOCYTES # (AUTO) 1.5 K/uL (2.5-16.5); LYMPHOCYTES % (AUTO) 18.7 % (20.5-51.1); MEAN CORPUSCULAR HEMOGLOBIN 30 pg (27-31); MEAN CORPUSCULAR HGB CONC 33 g/dL (33-37); MEAN CORPUSCULAR VOLUME 89 fL (80-94); MONOCYTES # (AUTO) 0.9 K/uL (0.8-1.0); MONOCYTES % (AUTO) 10.7 % (1.7-9.3); NEUTROPHILS # (AUTO) 5.4 K/uL (1.8-7.7); NEUTROPHILS % (AUTO) 68.2 % (42.2-75.2); PLATELET COUNT (AUTO) 236 K/uL (140-450); RED BLOOD CELL COUNT(AUTO) 4.42 MIL/uL (4.20-5.40); RED CELL DISTRIBUTION WIDTH 11.8 % (11.6-13.7)
[2017-06-01 07:16] LABS: ANION GAP 11.5 (8-16); CARBON DIOXIDE 27.6 mmol/L (21-32); CREATININE 0.8 mg/dL (0.6-1.3); POTASSIUM 4.1 mmol/L (3.5-5.1)
--- NOTE | 2017-06-01 07:20 | NUR ---
GAVE BEDSIDE REPORT TO DAY SHIFT NURSE KARENA RN, PT STABLE, NO DISTRESS NOTED, SITTER BY BEDSIDE.
--- NOTE | 2017-06-01 07:30 | NUR ---
RECEIVED ON BED ASLEEP. NO SOB NOTED. NO SIGNS OF PAIN AT THIS TIME. IV TO RT AC PATENT AND INTACT. PT REFUSED IV FLUIDS. DR. MCMAHAN AWARE. CHEST CLEAR. ABDOMEN SOFT, BOWEL SOUNDS PRESENT. NO EDEMA NOTED. WITH 1:1 SITTER AT THE BEDSIDE. WILL CONTINUE TO MONITOR PT FOR SUICIDAL IDEATION.
[2017-06-01 08:00] VITALS: BP 152/89
--- NOTE | 2017-06-01 08:15 | NUR ---
CALLED PT'S FATHER PER PT'S REQUEST# ([phone]), NO ANSWER. VOICE MESSAGE LEFT. AWAITING FOR CALL BACK.
[2017-06-01] MEDS: DOCUSATE SODIUM 100 MG GELCAP PO SCH ×2 (08:21→21:49)
[2017-06-01] MEDS: QUEtiapine FUMARATE 25 MG TAB PO SCH ×2 (08:21→21:49)
[2017-06-01] MEDS: LISINOPRIL 10 MG TAB PO SCH (08:21)
[2017-06-01] MEDS: NACL 0.9% 1,000 ML IV SCH ×2 (08:57→18:57)
[2017-06-01] MEDS ORDERED: PANTOPRAZOLE 40 MG INJ VIAL IVP SCH (09:00)
--- NOTE | 2017-06-01 09:57 | NUR ---
PATIENT HAS BEEN SCREENED AND CATEGORIZED LOW NUTRITION RISK. PATIENT WILL BE SEEN WITHIN 7 DAYS OF ADMISSION. 06/07/[address]
--- NOTE | 2017-06-01 11:37 | NUR ---
CALLED PT'S FATHER AGAIN FOR THE 2ND TIME. VOICEMAIL MESSAGE LEFT, AWAITING FOR CALL BACK. PT MADE AWARE. VERBALIZED UNDERSTANDING.
--- NOTE | 2017-06-01 15:43 | NUR ---
CM NOTE INITIAL REVIEW FAXED TO [facility] / FAX# [phone], ATTN: DAVID #[phone] PATIENT INFORMATION & 5150 FAXED TO [facility] / FAX# [phone], C: [phone]
--- NOTE | 2017-06-01 15:46 | NUR ---
SEEN BY DR. CLEARY WITH NEW ORDERS. PT STILL MEET 5150 CRITERIA.
--- NOTE | 2017-06-01 16:10 | NUR ---
LEFT A VM TO PT'S FATHER FOR THE 3RD TIME REQUESTED BY PT. AWAITING FOR CALL BACK. PT MADE AWARE,VERBALIZED UNDERSTANDING.
--- NOTE | 2017-06-01 19:00 | NUR ---
PT AWAKE, RESTING. NO SOB NOTED. NO COMPLAINTS MADE. STILL WITH SITTER FOR 5150 HOLD. WILL ENDORSE TO NEXT SHIFT NURSE FOR CONTINUITY OF CARE.
--- NOTE | 2017-06-01 19:15 | NUR ---
RECEIVED BEDSIDE REPORT FROM DAY SHIFT NURSE KARENA RN, PT STABLE, NO DISTRESS NOTED, CALM AND SLEEPING, 1:1 SITTER BY BEDSIDE, INITIAL ASSESSMENT DONE, ALL SAFETY PRECAUTION MET, PT IS STILL REFUSING IVF, WILL CONTINUE TO MONITOR.
--- NOTE | 2017-06-01 21:49 | NUR ---
DUE MEDICATION GIVEN, PT TOLERATED WELL, CALM AND COOPERATIVE, NO DISTRESS NOTED, EATING DINNER, 1:1 SITTER BY BEDSIDE, WILL CONTINUE TO MONITOR.
[2017-06-02 00:05] VITALS: BP 135/82
--- NOTE | 2017-06-02 02:12 | NUR ---
PT SLEEPING, CALM AND COOPERATIVE, NO DISTRESS NOTED, 1:1 SITTER BY BEDSIDE, WILL CONTINUE TO MONITOR.
[2017-06-02] MEDS: NACL 0.9% 1,000 ML IV SCH ×2 (04:57→14:57)
--- NOTE | 2017-06-02 05:57 | NUR ---
PT SLEEPING, NO DISTRESS NOTED, CALM, 1:1 SITTER BY BEDSIDE, WILL CONTINUE TO MONITOR.
--- NOTE | 2017-06-02 07:19 | NUR ---
GAVE BEDSIDE REPORT TO DAY SHIFT NURSE LELA SOLIMAN, ENDORSED PLAN OF CARE, PT STABLE NO DISTRESS NOTED, 1:1 SITTER BY BEDSIDE.
--- NOTE | 2017-06-02 07:22 | NUR ---
RECEIVED REPORT FROM ADJUNCT INSTRUCTOR IN ECONOMICS NURSE, PT IS SLEEPING IN BED BUT EASILY AWAKEN, A/OX3, AMBULATORY, IV IS ON THE RIGHT AC, PATENT, INTACT, FLUSHING WELL, NO S/S OF RESPIRATORY DISTRESS OR DISCOMFORT NOTED, DISCUSSED PLAN OF CARE WITH PT, PT KEPT QUIET, SAFETY/FALL/SUICIDE PRECAUTIONS ARE IN PLACE, 1:1 SITTER IS AT BEDSIDE, WILL CONTINUE TO MONITOR.
[2017-06-02] MEDS: LISINOPRIL 10 MG TAB PO SCH (08:56)
[2017-06-02] MEDS: DOCUSATE SODIUM 100 MG GELCAP PO SCH ×2 (08:56→20:44)
[2017-06-02] MEDS: QUEtiapine FUMARATE 25 MG TAB PO SCH (08:56)
--- NOTE | 2017-06-02 08:56 | NUR ---
DUE MEDICATIONS GIVEN, PT TOLERATED WELL. 1:1 SITTER IS AT BEDSIDE.
--- NOTE | 2017-06-02 11:51 | NUR ---
PT SLEEPING IN BED AT THIS TIME. 1:1 SITTER
--- NOTE | 2017-06-02 12:23 | NUR ---
FAXED CONCURRENT REVIEW TO [facility] [phone] PHONE DAVID [phone]
--- NOTE | 2017-06-02 12:36 | NUR ---
SPOKE WITH ALIREZA FROM [facility]. FAXED INITIAL REVIEW AND CONCURRENT REVIEW TO HER AT [phone] PHONE ALIREZA [phone]
--- NOTE | 2017-06-02 13:02 | NUR ---
SPOKE WITH KIESHA FROM [facility] AND SHE SAID STILL NO PSYCH BED.
--- NOTE | 2017-06-02 13:42 | NUR ---
PER PATIENT'S REQUEST CALLED HER FATHER. I REACHED HIS VOICEMAIL AND LEFT HIM A MESSAGE. NOTIFIED THE PATIENT THAT HER FATHER WAS CALLED AND A VOICEMAIL WAS LEFT WITH THE NURSES STATION PHONE NUMBER.
--- NOTE | 2017-06-02 13:55 | NUR ---
PATIENT ASKED ME TO CALL HER MOM AT [phone], I CALLED BUT IT WAS A NON WORKING NUMBER. I WENT AHEAD AND LET THE PATIENT KNOW IT WAS A NON WORKING NUMBER.
--- NOTE | 2017-06-02 15:24 | NUR ---
PT IS AWAKE RESTING IN BED, PT IS CALM, 1:1 SITTER IS AT BEDSIDE.
--- NOTE | 2017-06-02 16:01 | NUR ---
clerical and administrative workers contacted behavioral health call center and spoke to Kamala . Kamala reported that no bed yet has been found for Patient. Specialist Physicians Provided Floor number to be contacted if bed is found
[2017-06-02 18:00] VITALS: BP 127/87
[2017-06-02 18:10] LABS: APPEARANCE,URINE CLEAR (CLEAR); BILIRUBIN,URINE NEGATIVE (NEGATIVE); BLOOD, URINE NEGATIVE (NEGATIVE); COLOR,URINE STRAW (YELLOW); LEUKOCYTE ESTERASE ,URINE NEGATIVE (NEGATIVE); NITRITE, URINE NEGATIVE (NEGATIVE); UGLUCOSE NEGATIVE (NEGATIVE)
--- NOTE | 2017-06-02 18:18 | NUR ---
RECEIVED PHONE CALL FROM LOBITO AT , SHE STATED THAT THEY HAD A BED AVAILABLE AT [facility], BED 9B, ATTENDING DOCTOR WOULD BE DR. HUANG, ADDRESS IS [address] [place] [address], CALL TO GIVE REPORT AT . LOBITO ASKED TO CALL HER BACK WITH THE ETA.
[2017-06-02 18:20] LABS: BARBITURATE, URINE NEG. ng/ml (NEG <=200); BENZODIAZEPINE, URINE NEG. ng/mL (NEG <=200); CANNABINOID, URINE NEG. ng/mL (NEG <=50); COCAINE, URINE NEG. ng/mL (NEG <=300); OPIATE, URINE NEG. ng/mL (NEG <=2000); PHENCYCLIDINE SCREEN,URINE NEG. ng/mL (NEG <=25)
--- NOTE | 2017-06-02 18:57 | NUR ---
[facility] AND GAVE REPORT TO TIMMY RN AT .
--- NOTE | 2017-06-02 19:01 | NUR ---
CALLED PATIENT FATHER AND REACHED HIS VOICEMAIL. I LET HIM KNOW I WAS CALLING TO LET HIM KNOW THE PATIENT WOULD BE TRANSFERRING OVER TO [facility] IN [place]. I LEFT A CALLED BACK NUMBER IN CASE HE HAD ANY QUESTIONS.
[2017-06-02] MEDS ORDERED: HALO5SOL6 IM (19:09)
[2017-06-02] MEDS ORDERED: QUET25TA46 PO (19:09)
[2017-06-02] MEDS ORDERED: LISI10TA11 PO (19:09)
--- NOTE | 2017-06-02 19:30 | NUR ---
ENDORSED PT POULTRY PROCESSING SUPERVISOR NURSE FOR CONTINUITY OF CARE, PT STABLE AT THIS TIME.
--- NOTE | 2017-06-02 19:40 | NUR ---
RECEIVED REPORT FROM DAY RN, PATIENT RESTING IN BED, 1:1 SITTER AT BEDSIDE. NO S/S OF DISTRESS NOTED, RESPIRATION EVEN AND UNLABORED, WILL CONTINUE TO MONITOR.
--- NOTE | 2017-06-02 19:42 | NUR ---
Spoke with Essence from [facility] transportation and stated that they are not accepting [place] care insurance but probably Medical. Essence stated they will call us back in 20-30 minutes. Arnaldo-hot car charger nurse made aware. pt's face sheet and medical form faxed to [facility].
--- NOTE | 2017-06-02 20:55 | NUR ---
PATIENT IS PICKED UP BY [facility]. PATIENT IS IN STABLE CONDITION, NO S/S OF DISTRESS NOTED, RESPIRATION EVEN AND UNLABORED, REPORT GIVEN TO TITUS FROM THE [facility].
[2017-06-02] MEDS ORDERED: QUEtiapine FUMARATE 25 MG TAB PO SCH (21:00)
--- NOTE | 2017-06-05 15:12 | NUR ---
CM NOTE RETRO REVIEW W/ DISCHARGE SUMMARY FAXED TO [place] [facility] / FAX# [phone]
== END 2017-06-02 21:00 | DRG 52 ==
LOC: MED 19:53 → MTU 22:21
PROVIDERS: ADMIT Family Medicine; ATTEND Family Medicine
DX: G93.40 Encephalopathy, unspecified (principal); F33.3 Major depressive disorder, recurrent, severe with psychotic symptoms; R45.851 Suicidal ideations; I10 Essential (primary) hypertension; E78.5 Hyperlipidemia, unspecified; Z88.0 Allergy status to penicillin; Z91.14 Patient's other noncompliance with medication regimen
CPT/HCPCS: 36415; 71010; 80048; 80053; 80305; 81003; 81025; 82140; 82150; 83036; 83605; 83690; 83735; 83880; 84100; 84439; 84443; 84484; 85025; 85610; 85730; 87040; 87081; 87086; 93005; 96372; 99285; G0480; G0482; J1630; J7030; Q0163